=== PATIENT | female | born 1995 | race American Indian/Alaskan Native ===

== ENCOUNTER 2017-02-12 17:15 | Emergency (ER) | payer SELFPAY ==
[2017-02-12] MEDS ORDERED: NACL 0.9% 1000 ML 1,000 ML IV ONE (23:42)
[2017-02-12] MEDS ORDERED: ZOFRAN IV ONE (23:42)
--- NOTE | 2017-02-12 23:43 | Emergency Department Report ---
ED Abdominal Pain HPI - General Chief Complaint: Back Pain/Injury Stated Complaint: SIDE/BACK PAIN Time Seen by Provider: 02/12/17 23:29 Source: patient Mode of arrival: Ambulatory Limitations: No Limitations - History of Present Illness Initial Comments: Patient comes into the ER today with complaints of abdominal pain, bilateral side pain, vomiting for the past week. Patient denies any diarrhea, vaginal discharge, dysuria, chest pain, cough, fever. Patient states that she has been vomiting without any noticeable pattern but does state that she drank some alcohol in a norbert the other day and was unable to finish her drink before she had to go throw it up. MD Complaint: abdominal pain Severity scale (0 -10): 7 - Related Data Previous Rx's Medication Instructions Recorded Last Taken Type HYDROcodone/APAP 5-325 [[place] 1 each PO Q6HR PRN #15 tablet 10/15/13 Unknown Rx 5/325 mg] Acetaminophen/Codeine 1 tab PO Q6H PRN #30 tab 07/21/14 Unknown Rx [Acetaminophen-Codeine #3 TAB] Doxycycline [Vibramycin CAP] 100 mg PO BID #30 capsule 07/21/14 Unknown Rx Fluconazole [Diflucan 200] 200 mg PO QDAY #1 tablet 07/21/14 Unknown Rx Ibuprofen [Motrin] 600 mg PO Q8H PRN #50 tablet 07/21/14 Unknown Rx Ondansetron [Zofran Odt] 4 mg PO Q8HR PRN #20 tab.rapdis 02/13/17 Unknown Rx traMADol [Ultram 50 MG tab] 50 mg PO Q4HR PRN #20 tablet 02/13/17 Unknown Rx Allergies Allergy/AdvReac Type Severity Reaction Status Date / Time shellfish derived Allergy Hives Verified 07/21/14 13:31 ED Review of Systems ROS: Stated complaint: SIDE/BACK PAIN Other details as noted in HPI Constitutional: denies: chills, fever Eyes: denies: eye pain, eye discharge, vision change ENT: denies: ear pain, throat pain Respiratory: denies: cough, shortness of breath, wheezing Cardiovascular: denies: chest pain, palpitations Endocrine: no symptoms reported Gastrointestinal: abdominal pain, nausea, vomiting. denies: diarrhea, constipation Genitourinary: frequency. denies: urgency, dysuria, hematuria, discharge Musculoskeletal: denies: back pain, joint swelling, arthralgia Skin: denies: rash, lesions Neurological: denies: headache, weakness, paresthesias Psychiatric: denies: anxiety, depression Hematological/Lymphatic: denies: easy bleeding, easy bruising ED Past Medical Hx - Past Medical History Previous Medical History?: No - Surgical History Past Surgical History?: Yes Additional Surgical History: 05/20/2014 - Social History Smoking Status: Never Smoker Substance Use Type: None - Medications Home Medications: Home Medications Medication Instructions Recorded Confirmed Last Taken Type HYDROcodone/APAP 5-325 [[place] 1 each PO Q6HR PRN #15 tablet 10/15/13 Unknown Rx 5/325 mg] Acetaminophen/Codeine 1 tab PO Q6H PRN #30 tab 07/21/14 Unknown Rx [Acetaminophen-Codeine #3 TAB] Doxycycline [Vibramycin CAP] 100 mg PO BID #30 capsule 07/21/14 Unknown Rx Fluconazole [Diflucan 200] 200 mg PO QDAY #1 tablet 07/21/14 Unknown Rx Ibuprofen [Motrin] 600 mg PO Q8H PRN #50 tablet 07/21/14 Unknown Rx Ondansetron [Zofran Odt] 4 mg PO Q8HR PRN #20 tab.rapdis 02/13/17 Unknown Rx traMADol [Ultram 50 MG tab] 50 mg PO Q4HR PRN #20 tablet 02/13/17 Unknown Rx ED Physical Exam - General Limitations: No Limitations General appearance: alert, in no apparent distress - Head Head exam: Present: atraumatic, normocephalic - Eye Eye exam: Present: normal appearance - ENT ENT exam: Present: normal exam, normal orophraynx, mucous membranes moist, TM's normal bilaterally, normal external ear exam - Neck Neck exam: Present: normal inspection, full ROM. Absent: tenderness, lymphadenopathy - Respiratory Respiratory exam: Present: normal lung sounds bilaterally. Absent: respiratory distress, chest wall tenderness, decreased breath sounds - Cardiovascular Cardiovascular Exam: Present: regular rate, normal rhythm, normal heart sounds. Absent: systolic murmur, diastolic murmur, rubs, gallop - GI/Abdominal GI/Abdominal exam: Present: soft, tenderness (epigastric), guarding, normal bowel sounds. Absent: distended, rebound, rigid, hyperactive bowel sounds, hypoactive bowel sounds, organomegaly, mass - Extremities Exam Extremities exam: Present: normal inspection - Back Exam Back exam: Present: normal inspection, full ROM. Absent: tenderness - Neurological Exam Neurological exam: Present: alert, oriented X3, CN II-XII intact, reflexes normal. Absent: motor sensory deficit - Psychiatric Psychiatric exam: Present: normal affect, normal mood - Skin Skin exam: Present: warm, dry, intact, normal color. Absent: rash ED Course Vital Signs 02/12/17 02/12/17 17:49 23:04 Temperature 98.6 F 98.3 F Pulse Rate 83 71 Respiratory 16 16 Rate Blood Pressure 127/93 Blood Pressure 120/88 [Right] O2 Sat by Pulse 100 99 Oximetry ED Medical Decision Making - Lab Data Result diagrams: 02/13/17 00:01 02/13/17 00:01 Lab Results 02/13/17 02/13/17 02/13/17 Range/Units 00:01 00:01 00:01 WBC 7.8 (4.5-11.0) K/mm3 RBC 4.31 (3.65-5.03) M/mm3 Hgb 12.6 (10.1-14.3) gm/dl Hct 38.0 (30.3-42.9) % MCV 88 (79-97) fl MCH 29 (28-32) pg MCHC 33 (30-34) % RDW 13.6 (13.2-15.2) % Plt Count 227 (140-440) K/mm3 Lymph % (Auto) 45.6 H (13.4-35.0) % [place] % (Auto) 8.7 H (0.0-7.3) % Eos % (Auto) 2.5 (0.0-4.3) % Baso % (Auto) 0.1 (0.0-1.8) % Lymph # 3.6 (1.2-5.4) K/mm3 [place] # 0.7 (0.0-0.8) K/mm3 Eos # 0.2 (0.0-0.4) K/mm3 Baso # 0.0 (0.0-0.1) K/mm3 Seg Neutrophils % 43.1 (40.0-70.0) % Seg Neutrophils # 3.4 (1.8-7.7) K/mm3 Sodium 136 L (137-145) mmol/L Potassium 3.8 (3.6-5.0) mmol/L Chloride 97.8 L (98-107) mmol/L Carbon Dioxide 27 (22-30) mmol/L Anion Gap 15 mmol/L BUN 10 (7-17) mg/dL Creatinine 0.5 L (0.7-1.2) mg/dL Estimated GFR > 60 ml/min BUN/Creatinine Ratio 20.00 % Glucose 84 (65-100) mg/dL Calcium 9.2 (8.4-10.2) mg/dL Total Bilirubin < 0.20 (0.1-1.2) mg/dL AST 20 (5-40) units/L ALT 43 (7-56) units/L Alkaline Phosphatase 76 (35-129) units/L Total Protein 7.3 (6.3-8.2) g/dL Albumin 4.1 (3.9-5) g/dL Albumin/Globulin Ratio 1.3 % Lipase 26 (13-60) units/L HCG, Qual Negative (Negative) - Radiology Data Radiology results: report reviewed CT of the abdomen and pelvis with IV contrast shows no acute abnormality. Gallbladder and biliary system interpreted as normal. The appendix is normal. No bowel obstructions no intestinal or urinary tract obstruction. - Medical Decision Making Patient is nontoxic and hemodynamically stable. Patient does states she is feeling better after receiving IV fluids and nausea medicine. No obvious etiology to her symptoms found on testing in the ER today. I will refer patient to gastroenterology for further evaluation and treat her symptoms at this time. Patient is in agreement with treatment plan the patient is stable for discharge. Critical care attestation.: If time is entered above; I have spent that time in minutes in the direct care of this critically ill patient, excluding procedure time. ED Disposition Clinical Impression: Epigastric abdominal pain, Vomiting Disposition: DC-01 TO HOME OR SELFCARE Is pt being admited?: No Does the pt Need Aspirin: No Condition: Good Instructions: Abdominal Pain (ED), Acute Nausea and Vomiting (ED) Prescriptions: Ondansetron [Zofran Odt] 4 mg PO Q8HR PRN #20 tab.rapdis PRN Reason: Nausea traMADol [Ultram 50 MG tab] 50 mg PO Q4HR PRN #20 tablet PRN Reason: Pain Referrals: PRIMARY CARE, [Primary Care Provider] - 3-5 Days [facility] [Provider Group] - 3-5 Days Time of Disposition: 02:31
[2017-02-13 00:22] LABS: Basophils % (Auto) 0.1 % (0.0-1.8); Eosinophils % (Auto) 2.5 % (0.0-4.3); Hemoglobin 12.6 gm/dl (10.1-14.3); Mean Corpuscular HGB Conc 33 % (30-34); Mean Corpuscular Hemoglobin 29 pg (28-32); Mean Corpuscular Volume 88 fl (79-97); Platelet Count 227 K/mm3 (140-440); Red Blood Count 4.31 M/mm3 (3.65-5.03); Red Cell Distribution Width 13.6 % (13.2-15.2); White Blood Count 7.8 K/mm3 (4.5-11.0)
[2017-02-13 00:38] LABS: Alanine Aminotransferase 43 units/L (7-56); Albumin 4.1 g/dL (3.9-5); Albumin/Globulin Ratio 1.3 %; Alkaline Phosphatase 76 units/L (35-129); Anion Gap 15 mmol/L; Bilirubin,Total < 0.20 mg/dL (0.1-1.2); Blood Urea Nitrogen 10 mg/dL (7-17); Calcium 9.2 mg/dL (8.4-10.2); Carbon Dioxide 27 mmol/L (22-30); Chloride 97.8 mmol/L (98-107); Glucose 84 mg/dL (65-100); Lipase 26 units/L (13-60); Potassium 3.8 mmol/L (3.6-5.0); Sodium 136 mmol/L (137-145); Total Protein 7.3 g/dL (6.3-8.2)
[2017-02-13] MEDS ORDERED: NACL ONE (00:40)
--- NOTE | 2017-02-13 02:16 | Cat Scan Report ---
FINAL REPORT PROCEDURE: CT ABDOMEN PELVIS W CON TECHNIQUE: Computerized axial tomography of the abdomen and pelvis was performed after the IV injection of iodinated nonionic contrast. HISTORY: epigastric abdominal pain COMPARISON: No prior studies are available for comparison. FINDINGS: Visualized lower thorax: No significant abnormality. Liver: Normal size and attenuation. Spleen: Normal size and attenuation. Gallbladder and biliary system: Normal. Pancreas: Normal. Adrenals: Normal. Kidneys: Normal. GI tract: The stomach is normal. The small bowel has a normal caliber. No obstruction, ileus or enteritis. The cecum, appendix and colon are normal.. Lymph nodes and mesentery: Normal. Vasculature: Normal. Bladder: Normal. Reproductive organs: No pelvic masses.. Peritoneum: No free fluid. Musculoskeletal structures: No significant abnormality. Other: None. IMPRESSION: No evidence of intestinal or urinary tract obstruction. No ileus or enteritis. The appendix is normal.
[2017-02-13 02:58] VITALS: BP 121/78
== END 2017-02-13 02:34 | disposition home or self-care (01) ==
LOC: ED 17:15
DX: R10.13 Epigastric pain (principal); R11.10 Vomiting, unspecified
CPT/HCPCS: 36415; 74177; 80053; 83690; 84703; 85025; 96374; 96375; 99284; J2405; J7030; Q9967

== ENCOUNTER 2017-06-26 21:13 | Emergency (ER) | payer MEDICAID ==
[2017-06-26 21:23] VITALS: BP 119/76
[2017-06-26 21:49] LABS: Basophils % (Auto) 0.5 % (0.0-1.8); Eosinophils % (Auto) 1.4 % (0.0-4.3); Hematocrit 37.1 % (30.3-42.9); Hemoglobin 12.4 gm/dl (10.1-14.3); Mean Corpuscular HGB Conc 33 % (30-34); Mean Corpuscular Hemoglobin 29 pg (28-32); Mean Corpuscular Volume 88 fl (79-97); Platelet Count 233 K/mm3 (140-440); Red Blood Count 4.22 M/mm3 (3.65-5.03); Red Cell Distribution Width 13.4 % (13.2-15.2); White Blood Count 9.1 K/mm3 (4.5-11.0)
[2017-06-26 21:53] LABS: Bacteria,Urine 1+ /HPF (Negative); Bilirubin,Urine NEG (Negative); Blood,Urine SM (Negative); Ketones,Urine NEG (Negative); Leukocyte Esterase,Urine MOD (Negative); Nitrite,Urine NEG (Negative); Protein,Urine <15 mg/dL mg/dL (Negative)
[2017-06-26 22:05] LABS: Alanine Aminotransferase 23 units/L (7-56); Albumin 4.1 g/dL (3.9-5); Albumin/Globulin Ratio 1.5 %; Alkaline Phosphatase 72 units/L (35-129); Anion Gap 15 mmol/L; BUN/Creatinine Ratio 24; Blood Urea Nitrogen 12 mg/dL (7-17); Carbon Dioxide 29 mmol/L (22-30); Chloride 98.7 mmol/L (98-107); Glucose 87 mg/dL (65-100); Lipase 27 units/L (13-60); Potassium 3.8 mmol/L (3.6-5.0); Sodium 139 mmol/L (137-145); Total Protein 6.9 g/dL (6.3-8.2)
== END 2017-06-27 00:25 | disposition left against medical advice (07) ==
LOC: ED 21:13
DX: R10.9 Unspecified abdominal pain (principal); Z53.21 Procedure and treatment not carried out due to patient leaving prior to being seen by health care provider
CPT/HCPCS: 36415; 80053; 81001; 83690; 84703; 85025

== ENCOUNTER 2018-01-28 12:42 | Inpatient (IN) | payer MEDICAID ==
[2018-01-28] MEDS ORDERED: LACTATED RINGERS 500 ML IV ONE (13:04)
--- NOTE | 2018-01-28 14:31 | Ultrasound Report ---
LIMITED OB ULTRASOUND: PROM Gestation: [place] Position: Breech Amniotic Fluid: decreased Heart Rate: 156 BPM Estimated age of 22 weeks 5 days.
[2018-01-28 14:59] LABS: Basophils % (Auto) 0.3 % (0.0-1.8); Eosinophils # (Auto) 0.1 K/mm3 (0.0-0.4); Eosinophils % (Auto) 1.2 % (0.0-4.3); Hematocrit 35.3 % (30.3-42.9); Hemoglobin 11.7 gm/dl (10.1-14.3); Lymphocytes # (Auto) 1.7 K/mm3 (1.2-5.4); Lymphocytes % (Auto) 24.1 % (13.4-35.0); Mean Corpuscular HGB Conc 33 % (30-34); Mean Corpuscular Hemoglobin 29 pg (28-32); Mean Corpuscular Volume 88 fl (79-97); Monocytes # (Auto) 0.7 K/mm3 (0.0-0.8); Monocytes % (Auto) 9.7 % (0.0-7.3); Platelet Count 203 K/mm3 (140-440); Red Blood Count 4.02 M/mm3 (3.65-5.03); Red Cell Distribution Width 14.5 % (13.2-15.2)
[2018-01-28] MEDS ORDERED: COLACE PO PRN (16:27)
[2018-01-28] MEDS ORDERED: TYLENOL PO PRN (16:27)
[2018-01-28] MEDS ORDERED: MAGNESIUM SULFATE 4GM/100ML 4 GM/100 ML BAG IV ONE (16:45)
[2018-01-28] MEDS ORDERED: LACTATED RINGERS 1,000 ML IV SCH (17:00)
--- NOTE | 2018-01-28 17:27 | History and Physical Report ---
History of Present Illness Date of examination: 01/28/18 Date of admission: 01/28/18 15:27 Chief complaint: srom clear History of present illness: This is a 22 yo at 22+5 weeks admitted to labor and delviery after dx with gross rupture with TAMARA 0. Patient states that she has had an uneventful . Past History Past Surgical History: no surgical history [employer] History: trichomonas Family/Genetic History: none Social history: no significant social history, single. denies: smoking, alcohol abuse, prescription drug abuse - Obstetrical History Expected Date of Delivery: 05/29/18 Actual Gestation: 22 Week(s) 5 Day(s) : 2 Para: 1 Hx # Term Pregnancies: 0 Number of Pregnancies: 0 Spontaneous Abortions: 0 Induced : 0 Number of Living Children: 1 Medications and Allergies Allergies Allergy/AdvReac Type Severity Reaction Status Date / Time shellfish derived Allergy Hives Verified 07/21/14 13:31 Home Medications Medication Instructions Recorded Confirmed Last Taken Type No Known Home Medications [No 01/28/18 01/28/18 Unknown History Reported Home Medications] Active Meds: Active Medications Acetaminophen (Tylenol) 650 mg PO Q4H PRN PRN Reason: Pain MILD(1-3)/Fever >100.5/CHILDERS Docusate Sodium (Colace) 100 mg PO Q12H PRN PRN Reason: Constipation Ampicillin Sodium (Polycillin/Ns 2 Gm/100 Ml) 2 gm in 100 mls @ 100 mls/hr IV Q6HR OMAR; Protocol Stop: 01/30/18 12:59 Lactated Ringer's (Lactated Ringers) 1,000 mls @ 125 mls/hr IV DIRECT OMAR Lactated Ringer's (Lactated Ringers) 1,000 mls @ 125 mls/hr IV DIRECT OMAR Magnesium Sulfate (Magnesium Sulfate 40gm/1000ml) 40 gm in 1,000 mls @ 50 mls/ hr IV DIRECT OMAR Multivitamins/Iron/Calcium ( Vitamin) 1 each PO QDAY OMAR Review of Systems All systems: negative Genitourinary: leakage of fluid - Vital Signs Vital signs: Vital Signs Temp Pulse Resp BP Pulse Ox 97.4 F L 83 16 131/81 99 01/28/18 16:00 01/28/18 16:00 01/28/18 16:00 01/28/18 16:00 01/28/18 16:00 Temp Pulse Resp BP Pulse Ox 97.4 F L 92 H 16 131/81 99 01/28/18 16:00 01/28/18 16:16 01/28/18 16:00 01/28/18 16:00 01/28/18 16:16 - Physical Exam Breasts: Positive: normal Cardiovascular: Regular rate, Normal S1 Lungs: Positive: Clear to auscultation, Normal air movement Abdomen: Positive: normal appearance, soft, normal bowel sounds. Negative: distention, tenderness, guarding Genitourinary (Female): Positive: normal external genitalia, normal perenium Vulva: both: normal Uterus: Positive: normal size, normal contour Adnexa: both: normal Anus/Rectum: Positive: normal perianal skin Extremities: Positive: normal Deep Tendon Reflex Grade: Normal +2 - Obstetrical FHR: auscultation normal Results Result Diagrams: 01/28/18 14:37 Abnormal lab results 01/28/18 Range/Units 14:37 [place] % (Auto) 9.7 H (0.0-7.3) % All other labs normal. Ultrasound: report reviewed Assessment and Plan A/P IUP 22+5 weeks PPROM azithro/amp latency abx Mag for neuroprotection IVF NICU consult Discussed poor prognosis
[2018-01-28] MEDS: LACTATED RINGERS 1,000 ML IV SCH (18:11)
[2018-01-28] MEDS: POLYCILLIN/NS 2 GM/100 ML 2 GM/100 ML BAG IV SCH (18:13)
[2018-01-28] MEDS: MAGNESIUM SULFATE 40GM/1000ML 40 GM/1,000 ML BAG IV SCH (18:24)
[2018-01-28] MEDS: ZITHROMAX 500 MG in NACL 0.9% 250ML 250 ML IV SCH (19:54)
[2018-01-28 20:09] LABS: Bilirubin,Urine NEG (Negative); Blood,Urine NEG (Negative); Color,Urine Yellow (Yellow); Mucus,Urine FEW /HPF; Protein,Urine <15 mg/dL mg/dL (Negative); Urobilinogen,Urine < 2.0 mg/dL (<2.0); WBC,Urine < 1.0 /HPF (0.0-6.0)
[2018-01-28 20:34] LABS: Basophils % (Auto) 0.3 % (0.0-1.8); Eosinophils # (Auto) 0.1 K/mm3 (0.0-0.4); Eosinophils % (Auto) 0.9 % (0.0-4.3); Hematocrit 34.8 % (30.3-42.9); Hemoglobin 11.5 gm/dl (10.1-14.3); Lymphocytes # (Auto) 1.5 K/mm3 (1.2-5.4); Lymphocytes % (Auto) 16.1 % (13.4-35.0); Mean Corpuscular HGB Conc 33 % (30-34); Mean Corpuscular Hemoglobin 29 pg (28-32); Mean Corpuscular Volume 88 fl (79-97); Monocytes # (Auto) 0.8 K/mm3 (0.0-0.8); Monocytes % (Auto) 8.4 % (0.0-7.3); Platelet Count 202 K/mm3 (140-440); Red Blood Count 3.96 M/mm3 (3.65-5.03); Red Cell Distribution Width 14.5 % (13.2-15.2)
--- NOTE | 2018-01-28 21:50 | Consultation ---
History of Present Illness Consult date: 01/28/18 Requesting physician: ALEXYS WASHINGTON Reason for consult: other (PPROM @ 22 completed weeks) History of present illness: [facility] consulted to discuss potential outcome related to extremely at 22 completed weeks. Met with mother at bedside. Discussd survival at this gestation based on recent NICHD data. Pointed out that survival at this gestation is poor (~5%), but improves to ~ 15-20% at 23 weeks for those newborns actively resuscitated. Overall, survival for infants born 22- 24 weeks is ~ 30%. Aside from survival, neurodevelopmental impairment (Hearing loss, blindness, cerebral palsy, and intellectual impairment) occurs in close to 50% of survivors born at 22-24 weeks. Emphasized to mother that every individual is different, and although no single source of information can precisely predict a baby's chances of survival or disability, the data is best presented and discussed in terms of management. Discussed with Dr. Washington and based on her understanding at this point that mother currently desires all interventions, concur with management with Magnesium sulfate,and antibiotics (Ampicillin, Azithromycin). Since mother is approaching 23 wks (22 5/7), would also start steroids. Will discuss with Maternal- Medicine when consults and continue to discuss with Dr. Washington. Assured mother of availability to discuss further issues which may arise. [place] Documentation - information: Height 5 ft 4 in Medications and Allergies Allergies Allergy/AdvReac Type Severity Reaction Status Date / Time shellfish derived Allergy Hives Verified 07/21/14 13:31 Home Medications Medication Instructions Recorded Confirmed Last Taken Type No Known Home Medications [No 01/28/18 01/28/18 Unknown History Reported Home Medications] Active Meds: Active Medications Acetaminophen (Tylenol) 650 mg PO Q4H PRN PRN Reason: Pain MILD(1-3)/Fever >100.5/CHILDERS Betamethasone Acet/Betameth SodPhos ([place] Soluspan) 12 mg IM Q24HR OMAR Stop: 01/30/18 10:01 Docusate Sodium (Colace) 100 mg PO Q12H PRN PRN Reason: Constipation Ampicillin Sodium (Polycillin/Ns 2 Gm/100 Ml) 2 gm in 100 mls @ 100 mls/hr IV Q6HR OMAR; Protocol Stop: 01/30/18 12:59 Last Admin: 01/28/18 18:13 Dose: 100 mls/hr Lactated Ringer's (Lactated Ringers) 1,000 mls @ 125 mls/hr IV DIRECT OMAR Last Admin: 01/28/18 18:11 Dose: 75 mls/hr Lactated Ringer's (Lactated Ringers) 1,000 mls @ 125 mls/hr IV DIRECT OMAR Magnesium Sulfate (Magnesium Sulfate 40gm/1000ml) 40 gm in 1,000 mls @ 50 mls/ hr IV DIRECT OMAR Last Admin: 01/28/18 18:24 Dose: 2 gm/hr, 50 mls/hr Azithromycin 500 mg/ Sodium (Chloride) 250 mls @ 250 mls/hr IV Q24HR OMAR Last Admin: 01/28/18 19:54 Dose: 250 mls/hr Multivitamins/Iron/Calcium ( Vitamin) 1 each PO QDAY OMAR Exam Vital Signs Temp Pulse Resp BP Pulse Ox 97.4 F L 83 16 131/81 99 01/28/18 16:00 01/28/18 16:00 01/28/18 16:00 01/28/18 16:00 01/28/18 16:00 Temp Pulse Resp BP Pulse Ox 97.6 F 87 18 110/62 99 01/28/18 20:05 01/28/18 20:07 01/28/18 20:05 01/28/18 20:07 01/28/18 16:16 Results - Laboratory Findings 01/28/18 20:11 Abnormal lab results 01/28/18 01/28/18 01/28/18 Range/Units 14:37 20:11 20:11 [place] % (Auto) 9.7 H 8.4 H (0.0-7.3) % Seg Neutrophils % 74.3 H (40.0-70.0) % Magnesium 3.70 H (1.7-2.3) mg/dL
[2018-01-28] MEDS: AMBIEN PO PRN (22:31)
[2018-01-29] MEDS: POLYCILLIN/NS 2 GM/100 ML 2 GM/100 ML BAG IV SCH ×4 (00:08→18:20)
--- NOTE | 2018-01-29 08:38 | Progress Note ---
Assessment and Plan A: IUP at 22w6d- Breech presentation PPROM on latency antibiotics (Ampicillin and azithromycin) Mag for neuroprotection x 24 hrs IVF NICU consult much appreciated P: Continue current management Begin betamethasone series today Anticipate MFM consult today Closely monitor maternal and status Subjective - Subjective Date of service: 01/29/18 Principal diagnosis: PPROM at 22w6d, Anhydramnios Interval history: Pt sad but has no physical complaints. Patient reports: loss of fluid, other (+ brown vaginal discharge ), no new complaints Objective - Vital Signs Vital Signs: Vital Signs - 12hr 01/28/18 01/28/18 01/29/18 22:16 22:21 00:07 Temperature Pulse Rate 91 H 89 104 H Respiratory 18 Rate Blood Pressure 105/56 105/56 Blood Pressure 105/56 [Right] O2 Sat by Pulse 100 Oximetry 01/29/18 01/29/18 01/29/18 00:09 00:10 00:12 Temperature Pulse Rate 104 H 101 H 97 H Respiratory Rate Blood Pressure 99/56 101/56 Blood Pressure [Right] O2 Sat by Pulse 100 93 Oximetry 01/29/18 01/29/18 01/29/18 00:14 00:27 02:28 Temperature Pulse Rate 95 H 89 114 H Respiratory 16 Rate Blood Pressure Blood Pressure 105/56 [Right] O2 Sat by Pulse 100 98 Oximetry 01/29/18 01/29/18 01/29/18 02:30 02:33 02:38 Temperature Pulse Rate 113 H 115 H 108 H Respiratory Rate Blood Pressure 107/57 Blood Pressure 107/57 [Right] O2 Sat by Pulse 94 96 97 Oximetry 01/29/18 01/29/18 01/29/18 02:43 02:44 02:48 Temperature Pulse Rate 107 H 110 H 100 H Respiratory Rate Blood Pressure Blood Pressure [Right] O2 Sat by Pulse 97 87 96 Oximetry 01/29/18 01/29/18 01/29/18 02:53 02:58 03:01 Temperature Pulse Rate 103 H 100 H 104 H Respiratory Rate Blood Pressure Blood Pressure [Right] O2 Sat by Pulse 96 96 94 Oximetry 01/29/18 01/29/18 01/29/18 03:03 03:08 03:13 Temperature Pulse Rate 103 H 101 H 107 H Respiratory Rate Blood Pressure Blood Pressure [Right] O2 Sat by Pulse 96 94 96 Oximetry 01/29/18 01/29/18 01/29/18 03:18 03:23 03:28 Temperature Pulse Rate 104 H 108 H 106 H Respiratory Rate Blood Pressure Blood Pressure [Right] O2 Sat by Pulse 95 96 95 Oximetry 01/29/18 01/29/18 01/29/18 03:33 03:37 03:38 Temperature Pulse Rate 106 H 108 H 115 H Respiratory Rate Blood Pressure Blood Pressure [Right] O2 Sat by Pulse 96 94 95 Oximetry 01/29/18 01/29/18 01/29/18 04:05 04:21 05:13 Temperature 97.6 F Pulse Rate 114 H 101 H 102 H Respiratory 18 Rate Blood Pressure 103/52 Blood Pressure 103/52 [Right] O2 Sat by Pulse 98 98 Oximetry 01/29/18 01/29/18 01/29/18 05:18 05:23 05:28 Temperature Pulse Rate 104 H 101 H 104 H Respiratory Rate Blood Pressure Blood Pressure [Right] O2 Sat by Pulse 96 98 97 Oximetry 01/29/18 01/29/18 01/29/18 05:34 05:39 05:44 Temperature Pulse Rate 101 H 99 H 103 H Respiratory Rate Blood Pressure Blood Pressure [Right] O2 Sat by Pulse 97 96 97 Oximetry 01/29/18 01/29/18 01/29/18 05:49 05:54 05:55 Temperature Pulse Rate 100 H 107 H 117 H Respiratory Rate Blood Pressure Blood Pressure [Right] O2 Sat by Pulse 97 99 80 L Oximetry 01/29/18 01/29/18 01/29/18 05:59 06:04 06:09 Temperature Pulse Rate 101 H 99 H 98 H Respiratory Rate Blood Pressure Blood Pressure [Right] O2 Sat by Pulse 99 98 99 Oximetry 01/29/18 01/29/18 01/29/18 06:14 06:19 06:55 Temperature 97.6 F Pulse Rate 98 H 102 H 99 H Respiratory Rate Blood Pressure Blood Pressure 94/51 [Right] O2 Sat by Pulse 99 98 Oximetry 01/29/18 01/29/18 01/29/18 06:57 06:58 07:00 Temperature Pulse Rate 97 H 96 H 97 H Respiratory Rate Blood Pressure 90/49 94/51 Blood Pressure [Right] O2 Sat by Pulse 89 99 Oximetry - Exam Breasts: deferred Cardiovascular: Regular rate Lungs: Clear to auscultation Abdomen: Present: soft (gravid ) Uterus: Present: normal (gravid ) FHR: auscultation normal Uterine Contraction Monitor Mode: External Uterine Contraction Pattern: Absent Uterine Tone Measurement Phase: Resting Extremities: normal - Labs Labs: Abnormal Labs 01/28/18 01/28/18 01/28/18 14:37 20:11 20:11 [place] % (Auto) 9.7 H 8.4 H Seg Neutrophils % 74.3 H Magnesium 3.70 H 01/29/18 01/29/18 00:29 06:46 [place] % (Auto) Seg Neutrophils % Magnesium 4.30 H 4.60 H Laboratory Results - last 24 hr 01/28/18 01/28/18 01/28/18 14:37 14:37 19:56 WBC 7.0 RBC 4.02 Hgb 11.7 Hct 35.3 MCV 88 MCH 29 MCHC 33 RDW 14.5 Plt Count 203 Lymph % (Auto) 24.1 [place] % (Auto) 9.7 H Eos % (Auto) 1.2 Baso % (Auto) 0.3 Lymph # 1.7 [place] # 0.7 Eos # 0.1 Baso # 0.0 Seg Neutrophils % 64.7 Seg Neutrophils # 4.5 Magnesium Urine Color Yellow Urine Turbidity Clear Urine pH 7.0 Ur Specific [place] 1.009 Urine Protein <15 mg/dl Urine Glucose (UA) Neg Urine Ketones Neg Urine Blood Neg Urine Nitrite Neg Urine Bilirubin Neg Urine Urobilinogen < 2.0 Ur Leukocyte Esterase Neg Urine WBC (Auto) < 1.0 Urine RBC (Auto) 1.0 U Epithel Cells (Auto) < 1.0 Urine Mucus Few Blood Type O POSITIVE Antibody Screen Negative 01/28/18 01/28/18 01/29/18 20:11 20:11 00:29 WBC 9.2 RBC 3.96 Hgb 11.5 Hct 34.8 MCV 88 MCH 29 MCHC 33 RDW 14.5 Plt Count 202 Lymph % (Auto) 16.1 [place] % (Auto) 8.4 H Eos % (Auto) 0.9 Baso % (Auto) 0.3 Lymph # 1.5 [place] # 0.8 Eos # 0.1 Baso # 0.0 Seg Neutrophils % 74.3 H Seg Neutrophils # 6.8 Magnesium 3.70 H 4.30 H Urine Color Urine Turbidity Urine pH Ur Specific [place] Urine Protein Urine Glucose (UA) Urine Ketones Urine Blood Urine Nitrite Urine Bilirubin Urine Urobilinogen Ur Leukocyte Esterase Urine WBC (Auto) Urine RBC (Auto) U Epithel Cells (Auto) Urine Mucus Blood Type Antibody Screen 01/29/18 06:46 WBC RBC Hgb Hct MCV MCH MCHC RDW Plt Count Lymph % (Auto) [place] % (Auto) Eos % (Auto) Baso % (Auto) Lymph # [place] # Eos # Baso # Seg Neutrophils % Seg Neutrophils # Magnesium 4.60 H Urine Color Urine Turbidity Urine pH Ur Specific [place] Urine Protein Urine Glucose (UA) Urine Ketones Urine Blood Urine Nitrite Urine Bilirubin Urine Urobilinogen Ur Leukocyte Esterase Urine WBC (Auto) Urine RBC (Auto) U Epithel Cells (Auto) Urine Mucus Blood Type Antibody Screen
[2018-01-29] MEDS: PRENATAL VITAMIN PO SCH (09:27)
[2018-01-29] MEDS: CELESTONE SOLUSPAN IM SCH (09:28)
[2018-01-29] MEDS: LACTATED RINGERS 1,000 ML IV SCH (10:54)
[2018-01-29] MEDS: MAGNESIUM SULFATE 40GM/1000ML 40 GM/1,000 ML BAG IV SCH (13:32)
--- NOTE | 2018-01-29 16:35 | Consultation ---
History of Present Illness Consult date: 01/29/18 Requesting physician: ALEXYS SOOD Reason for consult: PROM (22.6 weeks gestation) History of present illness: She is a 22yo, pleasant female, , admitted to [facility] on 01/28/18 at 22.5 weeks gestations, s/p PPROM. She reports engaging in sexual intercourse when PPROM occurred. An ultrasound was performed on admission showing anhydramnios. She denies complications this . She denies current leaking of fluid, bleeding, and contractions. Past History Past Medical History: no pertinent history Past Surgical History: no surgical history [employer] History: trichomonas Family/Genetic History: none - Obstetrical History : 3 Para: 1 Hx # Term Pregnancies: 1 Number of Pregnancies: 0 Spontaneous Abortions: 0 Induced : 1 Number of Living Children: 1 (2008, male, term, ) Medications and Allergies Allergies Allergy/AdvReac Type Severity Reaction Status Date / Time shellfish derived Allergy Hives Verified 07/21/14 13:31 Home Medications Medication Instructions Recorded Confirmed Last Taken Type No Known Home Medications [No 01/28/18 01/28/18 Unknown History Reported Home Medications] Active Meds: Active Medications Acetaminophen (Tylenol) 650 mg PO Q4H PRN PRN Reason: Pain MILD(1-3)/Fever >100.5/CHILDERS Last Admin: 01/29/18 09:26 Dose: 650 mg Betamethasone Acet/Betameth SodPhos (Celestone Soluspan) 12 mg IM Q24HR OMAR Stop: 01/30/18 10:01 Last Admin: 01/29/18 09:28 Dose: 12 mg Docusate Sodium (Colace) 100 mg PO Q12H PRN PRN Reason: Constipation Ampicillin Sodium (Polycillin/Ns 2 Gm/100 Ml) 2 gm in 100 mls @ 100 mls/hr IV Q6HR OMAR; Protocol Stop: 01/30/18 12:59 Last Admin: 01/29/18 12:24 Dose: 100 mls/hr Lactated Ringer's (Lactated Ringers) 1,000 mls @ 125 mls/hr IV DIRECT OMAR Last Admin: 01/29/18 10:54 Dose: 75 mls/hr Magnesium Sulfate (Magnesium Sulfate 40gm/1000ml) 40 gm in 1,000 mls @ 50 mls/ hr IV DIRECT [facility] Last Admin: 01/29/18 13:32 Dose: 2 gm/hr, 50 mls/hr Azithromycin 500 mg/ Sodium (Chloride) 250 mls @ 250 mls/hr IV Q24HR [facility] Last Admin: 01/28/18 19:54 Dose: 250 mls/hr Multivitamins/Iron/Calcium ( Vitamin) 1 each PO QDAY [facility] Last Admin: 01/29/18 09:27 Dose: 1 each Zolpidem Tartrate (Ambien) 10 mg PO QHS PRN PRN Reason: Insomnia Last Admin: 01/28/18 22:31 Dose: 10 mg Review of Systems Constitutional: other (Denies headaches, fevers, chills) Eyes: deferred Ears, nose, mouth and throat: deferred Cardiovascular: other (Denies chest pain, SOB, edema, palpitations) Respiratory: other (Denies SOB, wheezing, coughing) Breasts: deferred Gastrointestinal: other (Denies abdomnial pain, constipation, diarrhea) Genitourinary: other (denies contractions, bleeding, or current leaking of fluid ) Rectal Exam: deferred - Vital Signs Vital signs: Vital Signs Temp Pulse Resp BP Pulse Ox 97.4 F L 83 16 131/81 99 01/28/18 16:00 01/28/18 16:00 01/28/18 16:00 01/28/18 16:00 01/28/18 16:00 Temp Pulse Resp BP Pulse Ox 98.4 F 84 20 109/57 99 01/29/18 12:55 01/29/18 12:38 01/29/18 12:33 01/29/18 12:37 01/29/18 12:38 - Physical Exam Breasts: Positive: deferred Cardiovascular: Regular rate, Normal S1, Normal S2, No murmurs Lungs: Positive: Clear to auscultation Abdomen: Positive: other (gravid) Results Result Diagrams: 01/28/18 20:11 Abnormal lab results 01/28/18 01/28/18 01/29/18 Range/Units 20:11 20:11 00:29 [place] % (Auto) 8.4 H (0.0-7.3) % Seg Neutrophils % 74.3 H (40.0-70.0) % Magnesium 3.70 H 4.30 H (1.7-2.3) mg/dL 01/29/18 01/29/18 Range/Units 06:46 12:56 [place] % (Auto) (0.0-7.3) % Seg Neutrophils % (40.0-70.0) % Magnesium 4.60 H 5.30 H (1.7-2.3) mg/dL All other labs normal. Assessment and Plan A Currently 22.6 weeks Magnesium Sulfate infusion x 24 hours for neuroprotection IV Azithromycin and IV Ampicillin Betamethasone x 1(second dose to be received tomorrow) Continuous monitoring VSS S/P NICU consult discussing prognosis of P I discussed with Ms. Montenegro the poor prognosis of current . She verbalized understanding and stated "everything happens for a reason". I agreee with current management/plan of care Continue Magnesium Sulfate for 24 hours Complete Betamethasone 2nd dose Continue IV antibiotics Monitor for infection Continue monitoring [employer] ornamental ironworker MD (Dr. Gutierrez) to follow up with patient. Please call MD for further questions or concerns. Thank you for your consult. Jacki Begum NP
[2018-01-29] MEDS: AMBIEN PO PRN (22:11)
[2018-01-29] MEDS: ZITHROMAX 500 MG in NACL 0.9% 250ML 250 ML IV SCH (23:42)
[2018-01-30] MEDS: POLYCILLIN/NS 2 GM/100 ML 2 GM/100 ML BAG IV SCH ×3 (01:12→12:01)
[2018-01-30] MEDS: LACTATED RINGERS 1,000 ML IV SCH ×3 (01:15→19:00)
[2018-01-30] MEDS: CELESTONE SOLUSPAN IM SCH (12:00)
[2018-01-30] MEDS: PRENATAL VITAMIN PO SCH (12:05)
--- NOTE | 2018-01-30 13:11 | Progress Note ---
Assessment and Plan HD 2 for this IUP at 23 weeks with pprom. heart has been having occasional decelerations for 2 minutes. I discussed mode of delivery with patient in light of the fact that patient is pprom, severely premature and breech, and advised her that she would need to have a classical section if delivery becomes indicated. Patient was unaware of this. I also advised her that if a classical section was indicated that she would need to have for every subsequent . Patient became very upset with this information and stated that she will continue to think about her options. Continue current care Subjective - Subjective Date of service: 01/30/18 Principal diagnosis: PPROM at 22w6d, Anhydramnios Interval history: Rupture of membranes at 23 weeks. Patient recently received 2nd dose of steroids and is off of magnesium sulfate. Patient reports: loss of fluid, other (+ brown vaginal discharge ), no new complaints Objective - Vital Signs Vital Signs: Vital Signs - 12hr 01/30/18 01/30/18 01/30/18 02:26 03:00 04:26 Temperature 97.1 F L Pulse Rate 78 80 Respiratory Rate Blood Pressure 99/50 96/54 O2 Sat by Pulse Oximetry 01/30/18 01/30/18 01/30/18 05:00 05:31 06:26 Temperature 98.3 F 96.1 F L Pulse Rate 74 Respiratory Rate Blood Pressure 109/59 O2 Sat by Pulse Oximetry 01/30/18 01/30/18 01/30/18 08:00 11:54 11:57 Temperature 97.6 F 97.8 F Pulse Rate 73 Respiratory 16 Rate Blood Pressure 103/55 O2 Sat by Pulse Oximetry 01/30/18 12:18 Temperature Pulse Rate 86 Respiratory Rate Blood Pressure O2 Sat by Pulse 98 Oximetry - Exam Breasts: deferred Cardiovascular: Regular rate, Normal S1, Normal S2 Lungs: Normal air movement Abdomen: Present: normal appearance, soft, normal bowel sounds, other (nontender ) Vulva: both: normal Uterus: Present: normal, firm FHR: auscultation normal Uterine Contraction Pattern: Absent Extremities: normal Deep Tendon Reflex Grade: Normal +2 - Labs Labs: Abnormal Labs 01/28/18 01/28/18 01/28/18 14:37 20:11 20:11 Becker % (Auto) 9.7 H 8.4 H Seg Neutrophils % 74.3 H Magnesium 3.70 H 01/29/18 01/29/18 01/29/18 00:29 06:46 12:56 Becker % (Auto) Seg Neutrophils % Magnesium 4.30 H 4.60 H 5.30 H 01/29/18 18:21 Becker % (Auto) Seg Neutrophils % Magnesium 5.10 H Laboratory Results - last 24 hr 01/29/18 01/29/18 12:56 18:21 Magnesium 5.30 H 5.10 H
[2018-01-30] MEDS ORDERED: BICITRA ONE (13:53)
[2018-01-30] MEDS ORDERED: PITOCin/NS 20 UNIT/1000ML DRIP 20,000 MILLIUNITS/1,000 ML BAG IV ONE (13:53)
[2018-01-30] MEDS ORDERED: REGLAN ONE (13:53)
[2018-01-30] MEDS ORDERED: ANCEF/STERILE WATER 2 GM/20 ML 0 GM/0 ML SYRINGE IV ONE (13:54)
[2018-01-30] MEDS ORDERED: PEPCID IV ONE (13:54)
[2018-01-30] MEDS ORDERED: DIPRIVAN 10 MG/ML IV ONE (13:59)
--- NOTE | 2018-01-30 14:12 | Event Note ---
Date: 01/30/18 Called to see patient secondary to cord prolapse with approximately 8 inches of cord protruding outside of the vagina. Exam reveals legs and feet inside vagina. Patient initially stated that she wanted everything done, but en route to OR for stat classical section, patient decided that she did not want to proceed with surgery if chances of infant survival were slim to none, especially in light of cord prolapse. Will return to room and anticipate vaginal delivery.
[2018-01-30] MEDS ORDERED: SUBLIMAZE IV ONE (15:00)
[2018-01-30] MEDS ORDERED: PITOCin/NS 20 UNIT/1000ML DRIP 20 UNITS/1,000 ML BAG IV SCH (15:00)
[2018-01-30] MEDS ORDERED: PITOCin/NS 30 UNIT/500ML 30,000 MILLIUNITS/500 ML BAG IV ONE (15:33)
[2018-01-30] MEDS ORDERED: SUBLIMAZE ONE (18:06)
--- NOTE | 2018-01-30 18:42 | Procedure Note ---
OB Delivery Note - Delivery Date of Delivery: 01/30/18 Surgeon: SCOTT ALMANZA Estimated blood loss: 100cc - Vaginal Delivery presentation: breech Intrapartum events: labor-<37 weeks, PROM->1hr before delivery Delivery induction: none Delivery monitor: external uterine Route of delivery: breech extraction Delivery placenta: adherent, other Episiotomy: none Delivery laceration: none Anesthesia: none Delivery comments: Nonviable female delivered over intact perineum with double footling breech presentation at 1540. had mild spontaneous respirations but no cry and low heart rate at 56 and after 40 minutes. Placenta not delivered still at 1830. Will await for delivery of placenta. Give pitocin to help with delivery of placenta. - Infant A at 1 minute: 1 at 5 minutes: 1 Infant Gender: Female
[2018-01-30] MEDS ORDERED: ANCEF/STERILE WATER 2 GM/20 ML 2 GM/20 ML SYRINGE IV ONE (19:30)
[2018-01-30] MEDS ORDERED: ANCEF/STERILE WATER 2 GM/20 ML 2 GM/20 ML SYRINGE IV SCH (22:00)
[2018-01-30] MEDS ORDERED: SUBLIMAZE IV PRN (23:30)
[2018-01-31] MEDS ORDERED: BICITRA ONE (01:29)
[2018-01-31] MEDS ORDERED: PEPCID IV ONE ×2 (01:30)
[2018-01-31] MEDS ORDERED: REGLAN IV ONE (01:30)
[2018-01-31] MEDS ORDERED: BICITRA PO ONE (01:30)
[2018-01-31] MEDS ORDERED: REGLAN ONE (01:30)
--- NOTE | 2018-01-31 01:35 | Event Note ---
Date: 01/31/18 Called by nursing staff to report that placenta delivered, however called a second time to state that what was thought to be placenta was only a large clot. Patient has had an increase in bleeding but has yet to pass placenta. Will proceed with D&E for retained placenta. Consents signed and patient prepared for surgery
[2018-01-31] MEDS ORDERED: PITOCin/NS 20 UNIT/1000ML DRIP 20 UNITS/1,000 ML BAG IV SCH ×2 (02:00→04:25)
[2018-01-31] MEDS ORDERED: LACTATED RINGERS 1,000 ML IV SCH (02:00)
[2018-01-31] MEDS ORDERED: SUBLIMAZE ONE (02:18)
[2018-01-31] MEDS ORDERED: XYLOCAINE MPF 2% ONE (02:22)
--- NOTE | 2018-01-31 02:45 | Post Operative Note ---
Pre-op diagnosis: PPROM at 22 weeks, at 23 weeks. Retained placenta Post-op diagnosis: same Findings: Adherent 23 week placenta Procedure: D&E Anesthesia: GETA Surgeon: SCOTT ALMANZA Estimated blood loss: other (300) Pathology: list (placenta fragments) Specimen disposition: to lab Condition: stable Disposition: PACU
--- NOTE | 2018-01-31 02:55 | Anesthesia Consultation ---
Anesthesia Consult and Med Hx Date of service: 01/31/18 - Airway Anesthetic Teeth Evaluation: Good ROM Head & Neck: Adequate Mental/Hyoid Distance: Adequate Mallampati Class: Class II Intubation Access Assessment: Probably Good - Pulmonary Exam CTA: Yes - Cardiac Exam Cardiac Exam: RRR - Pre-Operative Health Status ASA Pre-Surgery Classification: ASA2, Emergency Proposed Anesthetic Plan: General - Pulmonary Hx Asthma: No COPD: No Hx Pneumonia: No - Cardiovascular System Hx Hypertension: No - Central Nervous System Hx Seizures: No Hx Psychiatric Problems: No - Endocrine Hx Renal Disease: No Hx End Stage Renal Disease: No Hx Hypothyroidism: No Hx Hyperthyroidism: No - Hematic Hx Anemia: No Hx Sickle Cell Disease: No - Other Systems Hx Alcohol Use: No Hx Obesity: Yes - Additional Comments Anesthesia Medical History Comments: IUFD with retained placenta
[2018-01-31] MEDS ORDERED: DILAUDID IV PRN (02:56)
--- NOTE | 2018-01-31 02:56 | Anesthesia Day of Surgery ---
Anesthesia Day of Surgery - Day of Surgery Patient Examined: Yes Patient H&P Reviewed: Yes Patient is NPO: Yes (FSP)
--- NOTE | 2018-01-31 02:56 | Post Anesthesia Evaluation ---
- Post Anesthesia Evaluation Patient Participated: Yes Airway Patent: Yes Stable Respiratory Function: Yes Nausea/Vomiting: No Temp > 96.8F: Yes Pain Manageable: Yes Adequeate Hydration: Yes Anesthesia Complications: No Block Receding Appropriately: Not Applicable
[2018-01-31] MEDS ORDERED: QUELICIN ONE (03:00)
[2018-01-31] MEDS ORDERED: BENADRYL PO PRN (04:25)
[2018-01-31] MEDS ORDERED: ZOFRAN IV PRN (04:25)
[2018-01-31] MEDS ORDERED: PHENERGAN PR PRN (04:25)
[2018-01-31] MEDS ORDERED: PHENERGAN PO PRN (04:25)
[2018-01-31] MEDS ORDERED: NORCO 5/325 PO PRN (04:25)
[2018-01-31] MEDS ORDERED: SODIUM CHLORIDE FLUSH SYRINGE 10 ML IV NR (04:25)
[2018-01-31] MEDS ORDERED: MILK OF MAGNESIA PO PRN (04:25)
[2018-01-31] MEDS ORDERED: TUCKS PAD TP PRN (04:25)
[2018-01-31] MEDS ORDERED: DULCOLAX PR PRN (04:25)
[2018-01-31] MEDS ORDERED: LANSINOH TP PRN (04:25)
[2018-01-31] MEDS ORDERED: TYLENOL PO PRN (04:25)
[2018-01-31] MEDS: MOTRIN PO SCH ×4 (05:33→22:50)
[2018-01-31] MEDS ORDERED: PRENATAL VITAMIN PO SCH (10:00)
[2018-01-31] MEDS: COLACE PO SCH ×2 (10:24→22:50)
[2018-01-31 12:31] LABS: Hematocrit 24.7 % (30.3-42.9); Hemoglobin 8.3 gm/dl (10.1-14.3)
[2018-01-31] MEDS ORDERED: LACTATED RINGERS ONE (13:53)
--- NOTE | 2018-01-31 20:58 | Progress Note ---
Assessment and Plan POD 0 s/p D&E. PPD 1 s/p delivery of extremely premature infant secondary to pprom. Patient stable. Will continue to watch another night. Plan for discharge in the morning. Subjective - Subjective Date of service: 01/31/18 Principal diagnosis: PPROM at 22w6d, Anhydramnios Interval history: Patient is POD 0 s/p D&E. She complained of mild dizziness this morning and has been having episodic low blood pressure. Patient reports: appetite normal, voiding normally, dizzy ambulation, flatus : Objective - Vital Signs Latest vital signs: Vital Signs Temp Pulse Resp BP BP Pulse Ox 01/31/18 19:30 98.7 F 71 16 115/66 01/31/18 16:23 98.4 F 98 H 16 105/50 97 01/31/18 14:59 96/44 01/31/18 12:20 95/44 01/31/18 11:28 100 01/31/18 11:27 98.2 F 76 18 91/44 100 01/31/18 05:00 98.9 F 68 18 102/44 01/31/18 03:55 98 F 01/31/18 03:15 65 17 96/54 100 01/31/18 03:10 64 19 96/60 100 01/31/18 03:05 77 19 96/52 100 01/31/18 03:00 79 18 96/49 99 01/31/18 02:55 82 17 99/54 100 01/31/18 02:50 92 H 16 121/67 100 01/31/18 02:45 98 F 115/59 98 01/31/18 01:30 86 102/55 01/31/18 00:30 65 106/62 01/30/18 23:30 83 123/60 01/30/18 22:32 63 98/54 01/30/18 21:28 75 108/55 Intake and Output 01/31/18 01/31/18 01/31/18 06:59 14:59 22:59 Intake Total 1300 125 300 Output Total 1150 Balance 150 125 300 Intake: IV 1300 125 Left Wrist 125 Intake, Free Water 300 Output: Urine 1150 Void 1100 Other: Total, Output Amount 200 Estimated Blood Loss 300 - Exam Lungs: Present: Clear to auscultation, Normal air movement Abdomen: Present: normal appearance, soft Uterus: Present: fundal height below umbilicus Extremities: Present: normal Incision: Present: normal, dry, intact - Labs Labs: Abnormal lab results 01/31/18 Range/Units 12:08 Hgb 8.3 L D (10.1-14.3) gm/dl Hct 24.7 L D (30.3-42.9) %
[2018-01-31] MEDS ORDERED: AMBIEN PO PRN (21:39)
[2018-02-01] MEDS: MOTRIN PO SCH (05:33)
--- NOTE | 2018-02-01 08:41 | Progress Note ---
Assessment and Plan A/P PPD2 non viable female PPD1 retained placenta d and e doing well anemia-iron supplements d/c home with f/u in 2 weeks Subjective - Subjective Date of service: 02/01/18 Principal diagnosis: PPROM at 22w6d, Anhydramnios Interval history: This is a 22 yo at 22+5 weeks admitted to labor and delviery after dx with gross rupture with TAMARA 0. Patient states that she has had an uneventful . Patient reports: appetite normal, voiding normally, pain well controlled, flatus , ambulating normally : Objective - Vital Signs Latest vital signs: Vital Signs Temp Pulse Resp BP BP Pulse Ox 02/01/18 06:33 16 02/01/18 05:33 20 02/01/18 04:00 98.7 F 66 16 118/57 02/01/18 00:00 98.7 F 87 18 114/87 01/31/18 22:50 16 01/31/18 19:30 98.7 F 71 16 115/66 01/31/18 16:23 98.4 F 98 H 16 105/50 97 01/31/18 14:59 96/44 01/31/18 12:20 95/44 01/31/18 11:28 100 01/31/18 11:27 98.2 F 76 18 91/44 100 Intake and Output 01/31/18 02/01/18 02/01/18 23:59 07:59 15:59 Intake Total 300 Balance 300 Intake: Intake, Free Water 300 - Exam Breasts: Present: normal Cardiovascular: Present: Regular rate, Normal S1 Lungs: Present: Clear to auscultation, Normal air movement Abdomen: Present: normal appearance, soft, normal bowel sounds. Absent: distention, tenderness, guarding Vulva: both: normal Uterus: Present: normal, firm, fundal height below umbilicus. Absent: bogginess , tenderness Extremities: Present: normal Deep Tendon Reflex Grade: Normal +2 - Labs Labs: Abnormal lab results 01/31/18 Range/Units 12:08 Hgb 8.3 L D (10.1-14.3) gm/dl Hct 24.7 L D (30.3-42.9) %
--- NOTE | 2018-02-01 08:43 | Discharge Summary ---
Providers - Providers Date of Admission: 01/30/18 15:00 Date of discharge: 02/01/18 Attending physician: ALEXYS SOOD MD Primary care physician: ALEXYS SOOD MD Hospitalization Reason for admission: rupture of membranes Delivery: Episiotomy: none Laceration: none Other procedures: other (d and E) complications: retained placenta Discharge diagnosis: delivery baby: female Hospital course: Patient admitted at 22+5 weeks. Received mag, latency abx, and bmz. She had cord prolapse and delivered fetus female breech. Baby only survicving for 40 min. Patient had retained placenta and had a D and E. Patient did well and d/c home with f/u in 2 weeks Condition at discharge: Good Disposition: DC-01 TO HOME OR SELFCARE Plan - Discharge Medications Prescriptions: Ferrous Sulfate 325 mg PO BID #60 tablet. Ibuprofen [Motrin] 600 mg PO Q8H PRN #30 tablet PRN Reason: Pain - Provider Discharge Summary Additional instructions: [] Smoking cessation referral if applicable(refer to patient education folder for contact #) [] Refer to [facility]'s [facility] Booklet Call your doctor immediately for: * Fever > 100.5 * Heavy vaginal bleeding ( >1 pad per hour) * Severe persistent headache * Shortness of breath * Reddened, hot, painful area to leg or breast * Drainage or odor from incision. * Keep incision clean and dry at all times and follow doctor's instructions regarding bathing/showering - Follow up plan Follow up: ALEXYS SOOD MD [Primary Care Provider] - 7 Days
[2018-02-01 09:53] VITALS: BP 99/50
== END 2018-02-01 10:00 | disposition home or self-care (01) | DRG 767 ==
LOC: TRG 12:42 → LD 15:27 → UNDOADMOB 15:27 → LD 01-30 15:00 → OBSVTOIN 01-30 15:00 → OB 01-31 04:36
PROVIDERS: ADMIT Obstetrics & Gynecology; ATTEND Obstetrics & Gynecology
PROC: 10E0XZZ Delivery of Products of Conception, External Approach (ICD-10-PCS; principal; 2018-01-30)
PROC: 10D17ZZ Extraction of Products of Conception, Retained, Via Natural or Artificial Opening (ICD-10-PCS; 2018-01-30)
DX: O42.912 Preterm premature rupture of membranes, unspecified as to length of time between rupture and onset of labor, second trimester (principal); O60.12X0 Preterm labor second trimester with preterm delivery second trimester, not applicable or unspecified; O99.214 Obesity complicating childbirth; E66.9 Obesity, unspecified; O40.2XX0 Polyhydramnios, second trimester, not applicable or unspecified; O32.1XX0 Maternal care for breech presentation, not applicable or unspecified; O69.0XX0 Labor and delivery complicated by prolapse of cord, not applicable or unspecified; O99.03 Anemia complicating the puerperium; D64.9 Anemia, unspecified; Z3A.22 22 weeks gestation of pregnancy; Z68.36 Body mass index [BMI] 36.0-36.9, adult; Z91.013 Allergy to seafood; O76 Abnormality in fetal heart rate and rhythm complicating labor and delivery; O72.0 Third-stage hemorrhage; Z37.0 Single live birth
CPT/HCPCS: 36415; 76815; 81001; 83735; 85014; 85018; 85025; 86850; 86900; 86901; 88305; J0290; J0330; J0456; J0690; J0702; J2590; J2704; J2765; J3010; J3475; J7050; J7120

== ENCOUNTER 2018-02-03 10:50 | Inpatient (IN) | payer MEDICAID ==
[2018-02-03] MEDS ORDERED: LACTATED RINGERS 1,000 ML IV SCH (13:00)
--- NOTE | 2018-02-03 13:16 | History and Physical Report ---
History of Present Illness Date of examination: 02/03/18 Date of admission: 02/03/18 11:14 Chief complaint: fever at home of 102 after hospital discharge History of present illness: This is a 22 yo G P who had a PPROm with cord prolapse and D&E for retained placenta. She went home on Thursday but started having one day ago. Last night she stated that she had fever chills and fever as high as 102. She denies any urination nor frequency. She denies any sob nor cp. No other sx noted. Past History Past Medical History: no pertinent history Past Surgical History: D&C Social history: single. denies: smoking, alcohol abuse, prescription drug abuse - Obstetrical History : 3 Medications and Allergies Allergies Allergy/AdvReac Type Severity Reaction Status Date / Time shellfish derived Allergy Hives Verified 07/21/14 13:31 Home Medications Medication Instructions Recorded Confirmed Last Taken Type Ferrous Sulfate 325 mg PO BID #60 tablet. 02/01/18 Unknown Rx Ibuprofen [Motrin] 600 mg PO Q8H PRN #30 tablet 02/01/18 Unknown Rx oxyCODONE /ACETAMINOPHEN [Percocet 1 tab PO Q6HR PRN #10 tablet 02/01/18 Unknown Rx 5/325] Active Meds: Active Medications Lactated Ringer's (Lactated Ringers) 1,000 mls @ 125 mls/hr IV DIRECT OMAR Review of Systems All systems: negative Constitutional: fever, chills, sweats, night sweats - Vital Signs Vital signs: Vital Signs Temp Pulse Resp BP Pulse Ox 98.8 F 115 H 18 102/56 100 02/03/18 11:50 02/03/18 11:50 02/03/18 11:50 02/03/18 11:50 02/03/18 11:50 Temp Pulse Resp BP Pulse Ox 98.8 F 115 H 18 102/56 100 02/03/18 11:50 02/03/18 11:50 02/03/18 11:50 02/03/18 11:50 02/03/18 11:50 - Physical Exam Breasts: Positive: normal Cardiovascular: Regular rate, Normal S1 Lungs: Positive: Clear to auscultation, Normal air movement Abdomen: Positive: normal appearance, soft, normal bowel sounds. Negative: distention, tenderness, guarding Genitourinary (Female): Positive: normal external genitalia, normal perenium Uterus: Positive: normal size. Negative: tender Anus/Rectum: Positive: normal perianal skin Extremities: Positive: normal Deep Tendon Reflex Grade: Normal +2 Results All other labs normal. Assessment and Plan A/P PPD/POD Breech vaginal delivery and D&E fever w/u cbc, urine culture blood culture chest xray consult with ID close monitor of maternal status
[2018-02-03] MEDS ORDERED: DULCOLAX PR PRN (13:20)
[2018-02-03] MEDS ORDERED: TYLENOL PO PRN (13:20)
[2018-02-03] MEDS ORDERED: TUCKS PAD TP PRN (13:20)
[2018-02-03] MEDS ORDERED: ZOFRAN IV PRN (13:20)
[2018-02-03] MEDS ORDERED: LANSINOH TP PRN (13:20)
[2018-02-03] MEDS ORDERED: MILK OF MAGNESIA PO PRN (13:20)
[2018-02-03] MEDS ORDERED: PHENERGAN PO PRN (13:20)
[2018-02-03] MEDS ORDERED: PHENERGAN PR PRN (13:20)
[2018-02-03] MEDS ORDERED: BENADRYL PO PRN (13:20)
[2018-02-03] MEDS ORDERED: TORADOL IV PRN (13:20)
[2018-02-03] MEDS ORDERED: NORCO 5/325 PO PRN (13:20)
[2018-02-03] MEDS ORDERED: SODIUM CHLORIDE FLUSH SYRINGE 10 ML IV SCH (14:00)
[2018-02-03] MEDS: PERCOCET 5/325 PO PRN ×2 (14:00→20:23)
[2018-02-03] MEDS: MOTRIN PO SCH ×2 (14:00→20:22)
[2018-02-03 14:17] LABS: Hematocrit 27.4 % (30.3-42.9); Mean Corpuscular HGB Conc 33 % (30-34); Mean Corpuscular Hemoglobin 28 pg (28-32); Mean Corpuscular Volume 87 fl (79-97); Platelet Count 198 K/mm3 (140-440); Red Blood Count 3.17 M/mm3 (3.65-5.03); Red Cell Distribution Width 14.4 % (13.2-15.2)
[2018-02-03 15:12] LABS: Basophils % (Manual) 0 % (0.0-1.8); Eosinophils % (Manual) 0 % (0.0-4.3); Total Cells Counted 100
[2018-02-03 15:13] LABS: Anisocytosis 1+; Large Platelets Few; Platelet Estimate Cons
--- NOTE | 2018-02-03 18:39 | Consultation ---
History of Present Illness - Reason for Consult Consult date: 02/03/18 SIRS Requesting physician: ALEXYS SOOD - History of Present Illness 22 yo female admitted 02/03/18 with 23 weeks with premature rupture of membranes with cord prolapse and dilation and evacuation for retained placenta. She reports contraction for 48h and fever at 102 for 24h before admission. She denies any dysuria, hematuria, cough. Upon admission, temp 98.8, HR 115, R 1, BP 102/53. WBC 20.1. Hg 9. Plat 198. Micro: Blood cx 02/03 ngtd Abx: none Past History Past Surgical History: No surgical history Social history: single. denies: smoking, alcohol abuse, prescription drug abuse Medications and Allergies Allergies Allergy/AdvReac Type Severity Reaction Status Date / Time shellfish derived Allergy Hives Verified 07/21/14 13:31 Home Medications Medication Instructions Recorded Confirmed Last Taken Type Ferrous Sulfate 325 mg PO BID #60 tablet. 02/01/18 Unknown Rx Ibuprofen [Motrin] 600 mg PO Q8H PRN #30 tablet 02/01/18 Unknown Rx oxyCODONE /ACETAMINOPHEN [Percocet 1 tab PO Q6HR PRN #10 tablet 02/01/18 Unknown Rx 5/325] Active Meds: Active Medications Acetaminophen (Tylenol) 650 mg PO Q4H PRN PRN Reason: Pain MILD(1-3)/Fever >100.5/CHILDERS Acetaminophen/Hydrocodone Bitart ([place] 5/325) 2 each PO Q6H PRN PRN Reason: Pain, Moderate (4-6) Bisacodyl (Dulcolax) 10 mg FL BID PRN PRN Reason: Constipation Diphenhydramine HCl (Benadryl) 25 mg PO Q6H PRN PRN Reason: Itching Docusate Sodium (Colace) 100 mg PO BID OMAR Lactated Ringer's (Lactated Ringers) 1,000 mls @ 125 mls/hr IV DIRECT OMAR Ibuprofen (Motrin) 600 mg PO Q6HR OMAR Last Admin: 02/03/18 14:00 Dose: 600 mg Ketorolac Tromethamine (Toradol) 30 mg IV Q6H PRN PRN Reason: Pain, Moderate (4-6) Stop: 02/08/18 13:19 Magnesium Hydroxide (Milk Of Magnesia) 30 ml PO HS PRN PRN Reason: Constipation Multi-Ingredient Ointment (Lansinoh) 1 applic TP PRN PRN PRN Reason: Sore Nipples Ondansetron HCl (Zofran) 4 mg IV Q8H PRN PRN Reason: Nausea And Vomiting Oxycodone/Acetaminophen (Percocet 5/325) 1 tab PO Q6H PRN PRN Reason: Pain, Moderate (4-6) Last Admin: 02/03/18 14:00 Dose: 1 tab Promethazine HCl (Phenergan) 25 mg FL Q6H PRN PRN Reason: Nausea And Vomiting Promethazine HCl (Phenergan) 25 mg PO Q6H PRN PRN Reason: Nausea And Vomiting Sodium Chloride (Sodium Chloride Flush Syringe 10 Ml) 10 ml IV PRN OMAR [place]/Glycerin (Tucks Pad) 1 each TP PRN PRN PRN Reason: Hemorrhoid/cleansing/soothing Physical Examination - Physical Exam Narrative exam: Alert in NAD NC, AT, NADJA, clear OP Neck no LN Chest CTA mike CV RRR Abd soft obese mild tenderness Skin no rash Neuro alert oriented - Constitutional Vitals: Vital Signs Temp Pulse Resp BP Pulse Ox 98.8 F 115 H 18 102/56 100 02/03/18 11:50 02/03/18 11:50 02/03/18 11:50 02/03/18 11:50 02/03/18 11:50 Temperature -Last 24 Hours Temperature 98.8 F Results - Labs CBC & Chem 7: 02/03/18 13:27 Labs: Abnormal lab results 02/03/18 Range/Units 13:27 WBC 20.1 H (4.5-11.0) K/mm3 RBC 3.17 L (3.65-5.03) M/mm3 Hgb 9.0 L (10.1-14.3) gm/dl Hct 27.4 L (30.3-42.9) % Seg Neuts % (Manual) 86.0 H (40.0-70.0) % Lymphocytes % (Manual) 5.0 L (13.4-35.0) % Nucleated RBC % 2.0 H (0.0-0.9) % Seg Neutrophils # Man 17.3 H (1.8-7.7) K/mm3 Lymphocytes # (Manual) 1.0 L (1.2-5.4) K/mm3 Assessment and Plan Assessment: 1) SIRS: present on admission, manifested by tachycardia, hypotension, leukocytosis; source likely bacterial endometritis, should r/o UTI, bacteremia, pneumonia 2) 23 weeks with premature rupture of membranes with cord prolapse s/ p dilation and evacuation for retained placenta. 3) Anemia Plan: -f/u blood cultures -obtain UA and urine cultures -check CXR -start zosyn IV -monitor leukocytosis Thanks for consultation Florence Garcia MD
[2018-02-03] MEDS: COLACE PO SCH (20:22)
[2018-02-03 21:43] LABS: Bacteria,Urine 2+ /HPF (Negative); Bilirubin,Urine NEG (Negative); Blood,Urine LG (Negative); Color,Urine Yellow (Yellow); Mucus,Urine FEW /HPF; Urobilinogen,Urine < 2.0 mg/dL (<2.0)
[2018-02-03 21:44] LABS: WBC,Urine > 182.0 /HPF (0.0-6.0)
[2018-02-03] MEDS ORDERED: ZOSYN/NS 4.5GM/100ML 4.5 GM/100 ML VIAL IV ONE (22:00)
--- NOTE | 2018-02-03 23:58 | XRay Report ---
FINAL REPORT PROCEDURE: XR CHEST ROUTINE 2V TECHNIQUE: PA and lateral chest radiographs were obtained. CPT 54769 HISTORY: Fever COMPARISON: No prior studies are available for comparison. FINDINGS: Heart: Normal. Mediastinum/Vessels: Normal. Lungs/Pleural space: Normal. Bony thorax: No acute osseous abnormality. Other: IMPRESSION: Normal examination.
[2018-02-04] MEDS: MOTRIN PO SCH ×4 (01:59→23:33)
[2018-02-04] MEDS: PERCOCET 5/325 PO PRN ×3 (02:01→18:10)
[2018-02-04] MEDS: ZOSYN/NS 4.5GM/100ML 4.5 GM/100 ML VIAL IV SCH ×3 (06:39→22:31)
--- NOTE | 2018-02-04 08:16 | Progress Note ---
Assessment and Plan A/P: HD#2 admitted with Urosepsis s/p 22 wk breech vaginal delivery after 22 wk PPROM Infectious disease consult much appreciated Urine culture pending Continue to monitor clinically Subjective - Subjective Date of service: 02/04/18 Principal diagnosis: Urosepsis Interval history: Pt feels much better since admission and administration of antibiotics. Chest X ray normal. Blood cultures pending. Patient reports: appetite normal, voiding normally Objective - Vital Signs Latest vital signs: Vital Signs Temp Pulse Pulse Resp BP BP Pulse Ox 02/04/18 05:40 98 F 84 16 93/42 98 02/04/18 01:59 20 02/04/18 00:43 98.1 F 87 18 94/44 02/03/18 20:22 20 02/03/18 20:10 94 H 20 02/03/18 19:49 98.3 F 102 H 16 102/61 98 02/03/18 17:20 98.2 F 86 18 101/56 02/03/18 11:50 98.8 F 115 H 18 102/56 100 Intake and Output 02/03/18 02/04/18 02/04/18 22:59 06:59 14:59 Intake Total 600 480 Output Total 600 700 Balance 0 -220 Intake: Oral 360 Intake, Free Water 240 480 Output: Urine 600 700 Void 600 700 Other: Total, Intake Amount 360 Total, Output Amount 600 300 Voiding Method Toilet # Voids Void 1 - Exam Breasts: Present: deferred Cardiovascular: Present: Regular rate Lungs: Present: Clear to auscultation Abdomen: Present: soft Uterus: Present: fundal height below umbilicus. Absent: tenderness Extremities: Present: normal - Labs Labs: Abnormal lab results 02/03/18 02/03/18 Range/Units 13:27 21:15 WBC 20.1 H (4.5-11.0) K/mm3 RBC 3.17 L (3.65-5.03) M/mm3 Hgb 9.0 L (10.1-14.3) gm/dl Hct 27.4 L (30.3-42.9) % Seg Neuts % (Manual) 86.0 H (40.0-70.0) % Lymphocytes % (Manual) 5.0 L (13.4-35.0) % Nucleated RBC % 2.0 H (0.0-0.9) % Seg Neutrophils # Man 17.3 H (1.8-7.7) K/mm3 Lymphocytes # (Manual) 1.0 L (1.2-5.4) K/mm3 Urine WBC (Auto) > 182.0 H (0.0-6.0) /HPF
[2018-02-04] MEDS: COLACE PO SCH ×2 (09:57→22:30)
[2018-02-04 12:02] LABS: Hemoglobin 7.7 gm/dl (10.1-14.3); Mean Corpuscular HGB Conc 34 % (30-34); Mean Corpuscular Hemoglobin 29 pg (28-32); Mean Corpuscular Volume 87 fl (79-97); Platelet Count 194 K/mm3 (140-440); Red Blood Count 2.63 M/mm3 (3.65-5.03); Red Cell Distribution Width 14.4 % (13.2-15.2)
[2018-02-04 14:52] LABS: Band Neutrophils # (Manual) 0.8 K/mm3; Eosinophils % (Manual) 0 % (0.0-4.3); Total Cells Counted 100
[2018-02-04 14:53] LABS: Anisocytosis 1+; Platelet Estimate Consistent w Auto
[2018-02-05] MEDS: MOTRIN PO SCH ×2 (05:35→11:51)
[2018-02-05] MEDS: ZOSYN/NS 4.5GM/100ML 4.5 GM/100 ML VIAL IV SCH ×2 (06:45→13:37)
--- NOTE | 2018-02-05 09:48 | Progress Note ---
Assessment and Plan Assessment: 1) Sepsis: resolved; source likely bacterial endometritis +/- UTI. Blood cx negative. CXR neg. 2) 23 weeks with premature rupture of membranes with cord prolapse s/ p dilation and evacuation for retained placenta. 3) Presumed endometritis 4) UTI: urine cx pending Plan: -f/u urine culture -continue zosyn -monitor leukocytosis -Ok to d/c home from ID stand point on augmentin 875 mg po q12h total 10 days until 02/12 I am signing off Thanks for consultation Florence Garcia MD Subjective Date of service: 02/05/18 Principal diagnosis: Urosepsis Interval history: Feels better. No fever. Still bloody vaginal discharge mild. No abdominal pain. Micro: Blood cx 02/03 ngtd Urine cx 02/03 pending Abx: zosyn 02/04 Objective - Exam Narrative Exam: Alert in NAD NC, AT, NADJA, clear OP Neck no LN Chest CTA mike CV RRR Abd soft obese mild tenderness Skin no rash Neuro alert oriented - Constitutional Vitals: Vital Signs Temp Pulse Resp BP Pulse Ox 98.7 F 93 H 20 109/64 98 02/05/18 08:44 02/05/18 08:44 02/05/18 08:44 02/05/18 08:44 02/05/18 08:44 Temperature -Last 24 Hours Temperature 98.7 F Temperature 98.2 F Temperature 98.2 F Temperature 98.2 F Temperature 97.5 F Temperature 98.4 F - Labs CBC & Chem 7: 02/04/18 11:37 Labs: Abnormal lab results 02/04/18 Range/Units 11:37 WBC 13.4 H (4.5-11.0) K/mm3 RBC 2.63 L (3.65-5.03) M/mm3 Hgb 7.7 L (10.1-14.3) gm/dl Hct 23.0 L (30.3-42.9) % Lymphocytes % (Manual) 13.0 L (13.4-35.0) % Monocytes % (Manual) 10.0 H (0.0-7.3) % Seg Neutrophils # Man 9.1 H (1.8-7.7) K/mm3 Monocytes # (Manual) 1.3 H (0.0-0.8) K/mm3
[2018-02-05] MEDS: COLACE PO SCH (11:51)
--- NOTE | 2018-02-05 13:18 | Progress Note ---
Assessment and Plan A/P HD#3 admitted with Urosepsis s/p 22 wk breech vaginal delivery after 22 wk PPROM patient improved on zosyn Urine culture pending if cbc trending down will d/c home todway on augmentin for 10 days and f/ u in clinic in 2 weeks Subjective - Subjective Date of service: 02/05/18 Principal diagnosis: Urosepsis Interval history: This is a 22 yo G P who had a PPROm with cord prolapse and D&E for retained placenta. She went home on Thursday but started having one day ago. Last night she stated that she had fever chills and fever as high as 102. She denies any urination nor frequency. She denies any sob nor cp. No other sx noted. Patient reports: appetite normal, voiding normally, pain well controlled, flatus , ambulating normally Objective - Vital Signs Latest vital signs: Vital Signs Temp Pulse Resp BP Pulse Ox 02/05/18 08:44 98.7 F 93 H 20 109/64 98 02/05/18 04:20 98.2 F 75 18 104/50 02/05/18 00:00 98.2 F 71 18 101/50 02/04/18 20:00 98.2 F 85 18 96/51 02/04/18 15:30 97.5 F L 97 H 18 108/52 02/04/18 15:21 98.4 F 79 20 125/80 99 Intake and Output 02/04/18 02/05/18 02/05/18 23:59 07:59 15:59 Intake Total 340 240 Output Total 400 Balance 340 -160 Intake: IV 100 ZOSYN/NS 4.5GM/100ML 4.5 100 gm In 100 ml @ 200 mls/hr IV Q8HR [facility] Rx#: [id number] Oral 240 240 Output: Urine 400 Void 400 Other: Total, Intake Amount 240 240 Total, Output Amount 400 # Voids Void 1 - Exam Breasts: Present: normal Cardiovascular: Present: Regular rate, Normal S1 Lungs: Present: Clear to auscultation, Normal air movement Abdomen: Present: normal appearance, soft, normal bowel sounds. Absent: distention, tenderness, guarding Vulva: both: normal Uterus: Present: normal, firm. Absent: bogginess, tenderness Extremities: Present: normal Deep Tendon Reflex Grade: Normal +2 Incision: Present: normal - Labs Labs: Abnormal lab results 02/04/18 Range/Units 11:37 Lymphocytes % (Manual) 13.0 L (13.4-35.0) % Monocytes % (Manual) 10.0 H (0.0-7.3) % Seg Neutrophils # Man 9.1 H (1.8-7.7) K/mm3 Monocytes # (Manual) 1.3 H (0.0-0.8) K/mm3
--- NOTE | 2018-02-05 13:23 | Discharge Summary ---
Providers - Providers Date of Admission: 02/03/18 11:14 Date of discharge: 02/05/18 Attending physician: ALEXYS SOOD MD 02/03/18 13:20 Consult to Physician [CONS] Urgent Comment: Consulting Provider: ZAIDA ORO Physician Instructions: Reason For Exam: post op fever Primary care physician: ALEXYS SOOD MD Hospitalization Reason for admission: other Hospital course: patient admitted for fever. Dx with urosepsis. On zosyn with defervescent. Did well. Afebrile and clinically improved. D/c home with 10 days of augmentin. Condition at discharge: Good Disposition: DC-01 TO HOME OR SELFCARE Plan - Discharge Medications Prescriptions: Amoxicillin/K Clav Tab [Augmentin 875 mg] 1 tab PO Q12HR 10 Days #20 tab - Provider Discharge Summary Activity: routine, no sex for 6 weeks, no strenuous exercise Diet: routine Additional instructions: [] Smoking cessation referral if applicable(refer to patient education folder for contact #) [] Refer to [facility]'s [facility] Booklet Call your doctor immediately for: * Fever > 100.5 * Heavy vaginal bleeding ( >1 pad per hour) * Severe persistent headache * Shortness of breath * Reddened, hot, painful area to leg or breast * Drainage or odor from incision. * Keep incision clean and dry at all times and follow doctor's instructions regarding bathing/showering - Follow up plan Follow up: ALEXYS SOOD MD [Primary Care Provider] - 14 Days
[2018-02-05 13:47] VITALS: BP 104/55
[2018-02-05 14:18] LABS: Hematocrit 24.5 % (30.3-42.9); Hemoglobin 8.2 gm/dl (10.1-14.3); Mean Corpuscular HGB Conc 34 % (30-34); Mean Corpuscular Hemoglobin 30 pg (28-32); Mean Corpuscular Volume 88 fl (79-97); Platelet Count 228 K/mm3 (140-440); Red Blood Count 2.78 M/mm3 (3.65-5.03); Red Cell Distribution Width 14.4 % (13.2-15.2)
[2018-02-05 15:54] LABS: Basophils % (Manual) 0 % (0.0-1.8); Myelocytes # (Manual) 0.1 K/mm3; Total Cells Counted 100
[2018-02-05 15:55] LABS: Anisocytosis 1+
== END 2018-02-05 15:00 | disposition home or self-care (01) | DRG 776 ==
LOC: UNDOADMIN 10:50 → 3A 10:50 → OB 11:14
PROVIDERS: ADMIT Obstetrics & Gynecology; ATTEND Obstetrics & Gynecology
DX: O86.20 Urinary tract infection following delivery, unspecified (principal); Z91.013 Allergy to seafood; O90.81 Anemia of the puerperium; D64.9 Anemia, unspecified; B96.20 Unspecified Escherichia coli [E. coli] as the cause of diseases classified elsewhere
CPT/HCPCS: 36415; 71046; 81001; 85007; 85025; 87040; 87076; 87086; 87186; J2543; J7120

== ENCOUNTER 2018-08-22 00:39 | Emergency (ER) | payer SELFPAY | END 2018-08-22 01:00 | disposition left against medical advice (07) | LOC: ED 00:39 ==

== ENCOUNTER 2018-10-02 07:57 | Day surgery (SDC) | payer MEDICAID ==
[2018-10-02 08:40] LABS: Hematocrit 34.3 % (30.3-42.9); Hemoglobin 11.4 gm/dl (10.1-14.3); Mean Corpuscular HGB Conc 33 % (30-34); Mean Corpuscular Volume 82 fl (79-97); Platelet Count 230 K/mm3 (140-440); Red Blood Count 4.17 M/mm3 (3.65-5.03); Red Cell Distribution Width 17.7 % (13.2-15.2)
[2018-10-02] MEDS ORDERED: LACTATED RINGERS 1,000 ML ONE ×2 (09:04→10:34)
[2018-10-02] MEDS ORDERED: ROBINUL ONE (10:24)
[2018-10-02] MEDS ORDERED: NEO SYNEPHRINE/NS Syringe(OR USE) IV ONE (10:25)
[2018-10-02] MEDS ORDERED: ZOFRAN IV PRN (10:29)
[2018-10-02] MEDS ORDERED: SUBLIMAZE IV PRN (10:29)
--- NOTE | 2018-10-02 10:30 | Anesthesia Day of Surgery ---
Anesthesia Day of Surgery - Day of Surgery Patient Examined: Yes Patient H&P Reviewed: Yes Patient is NPO: Yes
--- NOTE | 2018-10-02 10:32 | Anesthesia Consultation ---
Anesthesia Consult and Med Hx Date of service: 10/02/18 - Airway Anesthetic Teeth Evaluation: Chipped ROM Head & Neck: Adequate Mental/Hyoid Distance: Adequate Mallampati Class: Class II Intubation Access Assessment: Probably Good - Pre-Operative Health Status ASA Pre-Surgery Classification: ASA2, Emergency Proposed Anesthetic Plan: General, Spinal - Pulmonary Hx Asthma: No COPD: No Hx Pneumonia: No - Cardiovascular System Hx Hypertension: No Hx Heart Attack/AMI: No - Central Nervous System Hx Seizures: No Hx Psychiatric Problems: No - Endocrine Hx Renal Disease: No Hx End Stage Renal Disease: No Hx Hypothyroidism: Yes (Mother) Hx Hyperthyroidism: No - Hematic Hx Anemia: No Hx Sickle Cell Disease: No - Other Systems Hx Alcohol Use: No Hx Cancer: No Hx Obesity: Yes - Additional Comments Anesthesia Medical History Comments: 16 weeks gest. FHR 153. Has had prior labor epidurals
[2018-10-02] MEDS ORDERED: ZOFRAN ONE (10:33)
--- NOTE | 2018-10-02 10:37 | Operative Report ---
Operative Report Operative Report: Operative note Date of surgery 10/02/2018 Date of dictation 10/02/2018 Preop diagnosis: SIUP at 16 weeks gestation Cervical incompetence Postop diagnosis : SIUP at 16 weeks gestation Cervical incompetence Procedure: Badillo Cervical cerclage Surgeon: Pola Ramsay MD Anesthesia: Spinal IVF 2 L Blood loss 20ml UO 50ml clear urine Complications : none Specimen :none Findings: 16 weeks size uterus , normal cervix , external os dilated 1cm, internal os fingertip, cervix soft long midposition The patient was counseled regarding the planned procedure , risks and benefits. Written consent was obtained . FHT were obtained prior to the procedure. The patient was taken to the operating room where a spinal anesthesia was placed and found to be adequate. The patient was positioned in the dorsal lithotomy position with legs supported by stirrups. The perineum was prepped and draped in the usual sterile fashion. Bladder was catheterized. A bimanual exam was performed and the uterus was noted to be 16 weeks in size. Internal os was fingertip, long soft midposition. A weighted speculum was placed into the vaginal and cervix visualized. The anterior lip of the cervix was grasped with a ring forcep. 0 prolone suture placed at the 12 oclock position and exited at the 9oclock position, placed at the 9oclock and exited at the 6oclock , placed at the 6oclock and exited at the 3oclock , placed at the 3oclock and exited at the 12oclock position. 9 knots placed at the 12oclock position. The cervix was visualized with no active bleeding or LOF. The speculum was removed and cervix was found to be closed on exam. All needles, sponges, and instrument counts were correct x2 .The patient tolerated the procedure and was transferred to recovery in stable condition .
--- NOTE | 2018-10-02 10:46 | Post Anesthesia Evaluation ---
- Post Anesthesia Evaluation Patient Participated: Yes Airway Patent: Yes Stable Respiratory Function: Yes Nausea/Vomiting: No Temp > 96.8F: Yes Pain Manageable: Yes Adequeate Hydration: Yes Anesthesia Complications: No Block Receding Appropriately: Yes Patient on Ventilator: No
--- NOTE | 2018-10-02 10:59 | Discharge Summary ---
Providers - Providers Date of Admission: 10/02/2018 Date of discharge: 10/02/18 Attending physician: PIERRE andrade Primary care physician: FUEL OPERATOR Hospitalization Reason for admission: cervical incompetence Condition: Good Procedures: cervical cerclage Hospital course: Pt had an uncomplicated cervical cerclage placed Disposition: -01 TO HOME OR SELFCARE - Discharge Diagnoses (1) Cervical incompetence affecting management of in second trimester, antepartum Status: Acute Core Measure Documentation - Palliative Care Palliative Care/ Comfort Measures: Not Applicable - Core Measures Any of the following diagnoses?: none - VTE Discharge Requirements Deep Vein Thrombosis/Pulmonary Embolism Present on Admission: No Exam - Constitutional Vitals: Temp Pulse Resp BP Pulse Ox 97.6 F 70 20 107/68 100 10/02/18 10:22 10/02/18 10:45 10/02/18 10:45 10/02/18 10:45 10/02/18 10:45 Plan Activity: no restrictions Weight Bearing Status: Full Weight Bearing Diet: regular (Pt advised to avoid anything in the vagina ( no sex tampons or douching) advised to monitor for fevers severe abdominal pain LOF or bleeding ) Follow up with: PRIMARY CARE, [Primary Care Provider] - 7 Days Forms: Outpatient Surgery DC Inst. Pending Studies n/a
[2018-10-06] MEDS ORDERED: SENSORCAINE/DEXTR 0.75-8.25% INFILTRATI ONE (14:54)
== END 2018-10-02 07:58 | disposition home or self-care (01) ==
LOC: OR 07:57 → LAB 07:57 → EDSTATUS 12:55
PROVIDERS: ATTEND Obstetrics & Gynecology
DX: O34.32 Maternal care for cervical incompetence, second trimester (principal); O99.282 Endocrine, nutritional and metabolic diseases complicating pregnancy, second trimester; O99.212 Obesity complicating pregnancy, second trimester; E03.9 Hypothyroidism, unspecified; E66.9 Obesity, unspecified; Z68.32 Body mass index [BMI] 32.0-32.9, adult; Z3A.16 16 weeks gestation of pregnancy; Z79.899 Other long term (current) drug therapy; Z91.013 Allergy to seafood
CPT/HCPCS: 36415; 59320; 85027; J2370; J2405; J7120

== ENCOUNTER 2019-03-04 10:50 | Inpatient (IN) | payer MEDICAID ==
--- NOTE | 2019-03-04 11:49 | Anesthesia Consultation ---
Anesthesia Consult and Med Hx Date of service: 03/04/19 - Airway Anesthetic Teeth Evaluation: Good ROM Head & Neck: Adequate Mental/Hyoid Distance: Adequate Mallampati Class: Class III Intubation Access Assessment: Possibly Difficult - Pulmonary Exam CTA: Yes - Cardiac Exam Cardiac Exam: RRR - Pre-Operative Health Status ASA Pre-Surgery Classification: ASA2 Proposed Anesthetic Plan: Spinal - Pulmonary Hx Smoking: No Hx Respiratory Symptoms: No - Cardiovascular System Hx Hypertension: No Hx Heart Attack/AMI: No Hx Percutaneous Transluminal Coronary Angioplasty (PTCA): No Hx Cardia Arrhythmia: No - Central Nervous System Hx Neuromuscular Disorder: No Hx Seizures: No CVA: No Hx Psychiatric Problems: No - Gastrointestinal Hx Gastroesophageal Reflux Disease: No - Endocrine Hx Renal Disease: No Hx Liver Disease: No Hx Insulin Dependent Diabetes: No Hx Non-Insulin Dependent Diabetes: No Hx Thyroid Disease: No - Other Systems Hx Obesity: Yes - Additional Comments Anesthesia Medical History Comments: 38w3d scheduled for cerclage removal. No hx anesthetic complications. Denies use of blood thinners or hx bleeding disorders.
--- NOTE | 2019-03-04 11:50 | Anesthesia Day of Surgery ---
Anesthesia Day of Surgery - Day of Surgery Patient Examined: Yes Patient H&P Reviewed: Yes Patient is NPO: Yes
[2019-03-04 12:06] LABS: Basophils % (Auto) 0.6 % (0.0-1.8); Eosinophils # (Auto) 0.1 K/mm3 (0.0-0.4); Eosinophils % (Auto) 1.6 % (0.0-4.3); Hematocrit 36.4 % (30.3-42.9); Hemoglobin 12.4 gm/dl (10.1-14.3); Lymphocytes # (Auto) 1.6 K/mm3 (1.2-5.4); Lymphocytes % (Auto) 25.2 % (13.4-35.0); Mean Corpuscular HGB Conc 34 % (30-34); Mean Corpuscular Volume 88 fl (79-97); Monocytes # (Auto) 0.7 K/mm3 (0.0-0.8); Monocytes % (Auto) 11.2 % (0.0-7.3); Platelet Count 152 K/mm3 (140-440); Red Blood Count 4.13 M/mm3 (3.65-5.03); Red Cell Distribution Width 15.7 % (13.2-15.2)
[2019-03-04] MEDS: LACTATED RINGERS 1,000 ML IV SCH (12:19)
[2019-03-04] MEDS ORDERED: ROBINUL ONE ×2 (13:28→14:12)
[2019-03-04] MEDS ORDERED: NACL 0.9% IR ONE (13:35)
[2019-03-04] MEDS ORDERED: SUBLIMAZE ONE (13:47)
--- NOTE | 2019-03-04 14:11 | Operative Report ---
Operative Report Operative Report: PREOPERATIVE DIAGNOSES: 1. IUP 38 weeks 2. Badillo cerclage SURGEON: Dr. Sharon Washington MD POSTOPERATIVE DIAGNOSES: 1.-2 ZENAIDA PROCEDURE PERFORMED: 1.Cerclage removal ANESTHESIA:Spinal ESTIMATED BLOOD LOSS: Less than 10 cc. INDICATIONS: This is a 23-year-old -Malagasy female that presents at 38 weeks with attemped cerclage removal in office x . Patient here for removal at term. PROCEDURE: The patient was consented and seen in the preoperative suite. She was taken to the operative suite, placed in a dorsal lithotomy position, and placed under Spinal . She was prepped and draped in the normal sterile fashion. Her bladder was drained with the red Stover catheter which produced approximately 20 cc of clear yellow urine. A bimanual exam was done, was performed by myself. Suture could be palpated on inner peortion of cervix on the left and released with scissors. Moderate bleeding note on left with pressure decreased. The entire time heart rate monitored. An audible variable heard. Patient transferred to L and d as the cervix noted to be 5/80/-1 with bulging bag. Patient transferred to L&D for evaluation of labor .
[2019-03-04] MEDS ORDERED: ZOFRAN ONE (14:12)
[2019-03-04] MEDS ORDERED: NEO SYNEPHRINE ONE (14:12)
[2019-03-04] MEDS ORDERED: MINERAL OIL PO PRN (15:00)
[2019-03-04] MEDS ORDERED: NARCAN 0.4 MG/1 ML IV PRN (15:00)
[2019-03-04] MEDS ORDERED: AMPICILLIN/NS 2 GM/100 ML 2 GM/100 ML BAG IV ONE (15:00)
[2019-03-04] MEDS ORDERED: LACTATED RINGERS 1,000 ML IV SCH (15:00)
[2019-03-04] MEDS ORDERED: PITOCin/NS 30 UNIT/500ML 30 UNITS/500 ML BAG IV SCH ×2 (15:00)
[2019-03-04] MEDS ORDERED: BRETHINE SUB-Q PRN (15:00)
[2019-03-04] MEDS ORDERED: XYLOCAINE 2% INFILTRATI ONE (15:00)
[2019-03-04] MEDS ORDERED: PITOCin/NS 20 UNIT/1000ML DRIP 20 UNITS/1,000 ML BAG IV SCH (15:00)
[2019-03-04] MEDS ORDERED: PHENERGAN PR PRN (15:00)
[2019-03-04] MEDS ORDERED: BRETHINE IVP PRN (15:00)
[2019-03-04] MEDS ORDERED: STADOL IV PRN (15:00)
[2019-03-04] MEDS ORDERED: SUBLIMAZE IV PRN (15:00)
[2019-03-04] MEDS ORDERED: ZOFRAN IV PRN (15:00)
--- NOTE | 2019-03-04 15:24 | Post Anesthesia Evaluation ---
- Post Anesthesia Evaluation Patient Participated: Yes Airway Patent: Yes Stable Respiratory Function: Yes Nausea/Vomiting: No Temp > 96.8F: Yes Pain Manageable: Yes Adequeate Hydration: Yes Anesthesia Complications: No
[2019-03-04 16:00] LABS: Hematocrit 35.4 % (30.3-42.9); Hemoglobin 11.8 gm/dl (10.1-14.3); Mean Corpuscular HGB Conc 33 % (30-34); Mean Corpuscular Volume 89 fl (79-97); Platelet Count 147 K/mm3 (140-440); Red Blood Count 3.99 M/mm3 (3.65-5.03)
--- NOTE | 2019-03-04 16:10 | History and Physical Report ---
History of Present Illness Date of examination: 03/04/19 Date of admission: 03/04/19 15:00 Chief complaint: s/p cerclage , advanced dilatation History of present illness: This is a 23 yo at 38 weeks. She had cerclage removed and noted to be 5/80/-1. She is admitted for observation for labor. She is patient of [facility] Past History Past Medical History: no pertinent history Past Surgical History: no surgical history, D&C, other (cerclage) Family/Genetic History: none Social history: single. denies: smoking, alcohol abuse, prescription drug abuse - Obstetrical History Expected Date of Delivery: 03/16/19 Actual Gestation: 38 Week(s) 2 Day(s) : 3 Para: 2 Hx # Term Pregnancies: 0 Number of Pregnancies: 1 Spontaneous Abortions: 0 Induced : 0 Number of Living Children: 1 Medications and Allergies Allergies Allergy/AdvReac Type Severity Reaction Status Date / Time shellfish derived Allergy Hives Verified 03/03/19 16:06 Home Medications Medication Instructions Recorded Confirmed Last Taken Type Vit,Calc76/Iron/Folic 1 tab PO DAILY 12/05/18 03/04/19 03/03/19 09:00 History [Pnv 29-1 Tablet] Active Meds: Active Medications Butorphanol Tartrate (Stadol) 2 mg IV Q2H PRN PRN Reason: Pain , Severe (7-10) Ephedrine Sulfate (Ephedrine Sulfate) 10 mg IV Q2M PRN PRN Reason: Hypotension Fentanyl (Sublimaze) 100 mcg IV Q2H PRN PRN Reason: Labor Pain Lactated Ringer's (Lactated Ringers) 1,000 mls @ 100 mls/hr IV DIRECT OMAR Last Admin: 03/04/19 12:19 Dose: 100 mls/hr Documented by: Oxytocin/Sodium Chloride (Pitocin/Ns 20 Unit/1000ml Drip) 20 units in 1,000 mls @ 125 mls/hr IV DIRECT OMAR Oxytocin/Sodium Chloride (Pitocin/Ns 30 Unit/500ml) 30 units in 500 mls @ 1 mls/hr IV TITR OMAR; Protocol Oxytocin/Sodium Chloride (Pitocin/Ns 30 Unit/500ml) 30 units in 500 mls @ 0 mls/hr IV TITR OMAR; Protocol Lactated Ringer's (Lactated Ringers) 1,000 mls @ 125 mls/hr IV DIRECT OMAR Mineral Oil (Mineral Oil) 30 ml PO QHS PRN PRN Reason: Constipation Naloxone HCl (Narcan 0.4 Mg/1 Ml) 0.1 mg IV Q2MIN PRN PRN Reason: Res Rate </= 8 or 02 SAT < 92% Ondansetron HCl (Zofran) 4 mg IV Q8H PRN PRN Reason: Nausea And Vomiting Promethazine HCl (Phenergan) [address] Q6H PRN PRN Reason: N/V if unable to take po Terbutaline Sulfate (Brethine) 0.25 mg SUB-Q ONCE PRN PRN Reason: Hyperstimulation/Hypertonicity Terbutaline Sulfate (Brethine) 0.25 mg IVP ONCE PRN PRN Reason: Hyperstimulation/Hypertonicity Review of Systems All systems: negative - Vital Signs Vital signs: Vital Signs Temp Pulse Resp BP Pulse Ox 98.3 F 85 20 110/63 98 03/04/19 11:25 03/04/19 11:25 03/04/19 11:25 03/04/19 11:25 03/04/19 11:25 Temp Pulse Resp BP Pulse Ox 98.3 F 93 H 20 104/68 98 03/04/19 11:30 03/04/19 15:52 03/04/19 11:30 03/04/19 15:52 03/04/19 11:30 - Physical Exam Breasts: Positive: normal Cardiovascular: Regular rate, Normal S1 Lungs: Positive: Clear to auscultation, Normal air movement Abdomen: Positive: normal appearance, soft, normal bowel sounds. Negative: distention, tenderness, guarding Genitourinary (Female): Positive: normal external genitalia, normal perenium Vagina: Positive: normal moisture Uterus: Positive: normal size, normal contour Deep Tendon Reflex Grade: Normal +2 - Obstetrical FHR: category 1 Cervical Dilatation: 5 Cervical Effacement Percentage: 80 station: 2 Uterine Contraction Pattern: Irregular Uterine Tone Measurement Phase: Contraction Uterine Contraction Intensity: Moderate Results Result Diagrams: 03/04/19 15:27 Abnormal lab results 03/04/19 Range/Units 11:53 RDW 15.7 H (13.2-15.2) % [place] % (Auto) 11.2 H (0.0-7.3) % All other labs normal. Assessment and Plan A/P IUP 38 weeks GBS unknown s/p removal of cerclage advanced dilatation observe
[2019-03-04] MEDS ORDERED: NARCAN 2 MG/2 ML IV PRN (18:42)
--- NOTE | 2019-03-04 18:42 | Anesthesia Consultation ---
Anesthesia Consult and Med Hx Date of service: 03/04/19 - Airway Anesthetic Teeth Evaluation: Good ROM Head & Neck: Adequate Mental/Hyoid Distance: Adequate Mallampati Class: Class II Intubation Access Assessment: Probably Good - Pulmonary Exam CTA: Yes - Cardiac Exam Cardiac Exam: RRR - Pre-Operative Health Status ASA Pre-Surgery Classification: ASA2 Proposed Anesthetic Plan: Epidural - Pulmonary Hx Smoking: No Hx Asthma: No Hx Respiratory Symptoms: No COPD: No Hx Pneumonia: No - Cardiovascular System Hx Hypertension: No Hx Heart Attack/AMI: No Hx Percutaneous Transluminal Coronary Angioplasty (PTCA): No Hx Cardia Arrhythmia: No - Central Nervous System Hx Neuromuscular Disorder: No Hx Seizures: No CVA: No Hx Psychiatric Problems: No - Gastrointestinal Hx Gastroesophageal Reflux Disease: No - Endocrine Hx Renal Disease: No Hx End Stage Renal Disease: No Hx Liver Disease: No Hx Insulin Dependent Diabetes: No Hx Non-Insulin Dependent Diabetes: No Hx Thyroid Disease: No Hx Hypothyroidism: No Hx Hyperthyroidism: No - Hematic Hx Anemia: No Hx Sickle Cell Disease: No - Other Systems Hx Alcohol Use: No Hx Cancer: No Hx Obesity: Yes - Additional Comments Anesthesia Medical History Comments: 38w3d scheduled for cerclage removal. No hx anesthetic complications. Denies use of blood thinners or hx bleeding disorders.
[2019-03-04] MEDS: fentaNYL-BUPIV 2 MCG/ML-0.125% 200 MCG/100 ML BAG EPIDURAL SCH (19:13)
[2019-03-04] MEDS: AMPICILLIN/NS 1 GM/50 ML 1 GM/50 ML BAG IV SCH (22:02)
[2019-03-05] MEDS: fentaNYL-BUPIV 2 MCG/ML-0.125% 200 MCG/100 ML BAG EPIDURAL SCH ×2 (01:39→10:08)
[2019-03-05] MEDS: LACTATED RINGERS 1,000 ML IV SCH (02:47)
[2019-03-05] MEDS: AMPICILLIN/NS 1 GM/50 ML 1 GM/50 ML BAG IV SCH ×2 (02:47→08:31)
[2019-03-05] MEDS ORDERED: MARCAINE 0.25% INFILTRATI ONE (06:18)
--- NOTE | 2019-03-05 11:07 | Progress Note ---
Assessment and Plan IUp at 38 weeks here for induction of labor post removal of cerclage. Will continue with induction process. Will continue to increase pitocin. Anticipate . Subjective - Subjective Date of service: 03/05/19 Principal diagnosis: Induction of labor post cerclage removal Interval history: Pt here for induction of labor post removal of cerclage on yesterday afternoon at 38 weeks. Pt made no cervical change overnight. Pitocin started early this am. AROM for clear fluid at 0900. FHT normal Patient reports: movement normal Objective - Vital Signs Vital Signs: Vital Signs - 12hr 03/04/19 03/04/19 03/04/19 23:15 23:30 23:46 Pulse Rate 69 58 L 65 Blood Pressure 93/51 95/52 96/54 03/05/19 03/05/19 03/05/19 00:00 00:16 00:31 Pulse Rate 80 69 115 H Blood Pressure 98/57 111/52 117/59 03/05/19 03/05/19 03/05/19 00:45 01:01 01:15 Pulse Rate 74 67 71 Blood Pressure 121/60 107/51 96/54 03/05/19 03/05/19 03/05/19 02:15 02:30 02:45 Pulse Rate 59 L 64 63 Blood Pressure 94/54 97/55 117/63 03/05/19 03/05/19 03/05/19 03:00 03:15 03:30 Pulse Rate 65 65 71 Blood Pressure 118/61 120/61 123/59 03/05/19 03/05/19 03/05/19 03:45 04:02 04:15 Pulse Rate 66 70 88 Blood Pressure 126/70 125/63 120/60 03/05/19 03/05/19 03/05/19 04:30 04:46 05:00 Pulse Rate 63 80 57 L Blood Pressure 114/60 128/72 99/52 03/05/19 03/05/19 03/05/19 05:15 05:32 05:45 Pulse Rate 64 81 58 L Blood Pressure 105/55 124/61 102/53 03/05/19 03/05/19 03/05/19 06:01 06:48 06:50 Pulse Rate 67 97 H 85 Blood Pressure 119/67 140/81 127/75 03/05/19 03/05/19 03/05/19 06:53 06:55 06:56 Pulse Rate 89 73 81 Blood Pressure 170/81 141/72 126/60 03/05/19 03/05/19 03/05/19 06:58 07:00 07:03 Pulse Rate 96 H 125 H 69 Blood Pressure 136/55 116/58 98/50 03/05/19 03/05/19 03/05/19 07:04 07:10 07:16 Pulse Rate 54 L 65 61 Blood Pressure 100/53 93/51 106/54 03/05/19 03/05/19 03/05/19 07:20 07:25 07:31 Pulse Rate 61 61 58 L Blood Pressure 100/54 86/44 90/49 03/05/19 03/05/19 03/05/19 07:35 07:40 08:14 Pulse Rate 72 65 67 Blood Pressure 85/46 103/55 90/54 03/05/19 03/05/19 03/05/19 08:42 09:12 09:43 Pulse Rate 64 63 76 Blood Pressure 118/62 119/63 114/87 03/05/19 03/05/19 10:13 10:42 Pulse Rate 66 65 Blood Pressure 117/67 103/53 - Exam Cardiovascular: Regular rate, Normal S1 Lungs: Clear to auscultation, Normal air movement Abdomen: Present: normal appearance, soft, normal bowel sounds Uterus: Present: normal, firm FHR: auscultation normal Cervical Dilatation: 5 Cervical Effacement Percentage: 70 station: -3 Uterine Contraction Pattern: Irregular Uterine Contraction Intensity: Mild Extremities: normal Deep Tendon Reflex Grade: Normal +2 - Labs Labs: Abnormal Labs 03/04/19 11:53 RDW 15.7 H [place] % (Auto) 11.2 H Laboratory Results - last 24 hr 03/04/19 03/04/19 03/04/19 11:53 15:27 15:27 WBC 6.4 5.7 RBC 4.13 3.99 Hgb 12.4 11.8 Hct 36.4 35.4 MCV 88 89 MCH 30 30 MCHC 34 33 RDW 15.7 H 15.0 Plt Count 152 147 Lymph % (Auto) 25.2 [place] % (Auto) 11.2 H Eos % (Auto) 1.6 Baso % (Auto) 0.6 Lymph # 1.6 Dolores # 0.7 Eos # 0.1 Baso # 0.0 Seg Neutrophils % 61.4 Seg Neutrophils # 3.9 HIV 1&2 Antibody Rapid HIV P24 Antigen Blood Type O POSITIVE Antibody Screen Negative 03/05/19 08:30 WBC RBC Hgb Hct MCV MCH MCHC RDW Plt Count Lymph % (Auto) Dolores % (Auto) Eos % (Auto) Baso % (Auto) Lymph # Dolores # Eos # Baso # Seg Neutrophils % Seg Neutrophils # HIV 1&2 Antibody Rapid Non react HIV P24 Antigen Non react Blood Type Antibody Screen
--- NOTE | 2019-03-05 14:36 | Procedure Note ---
OB Delivery Note - Delivery Date of Delivery: 03/05/19 Surgeon: SCOTT ALMANZA Estimated blood loss: 200cc - Vaginal Delivery presentation: vertex Delivery position: OA Intrapartum events: none Delivery augmentation: rupture of membranes, pitocin Delivery monitor: external FHT, external uterine Route of delivery: Delivery placenta: spontaneous Delivery cord: 3 umbilical vessels Episiotomy: none Delivery laceration: none Anesthesia: none Delivery comments: Viable male delivered over intact perineum with no nuchal cord. Weight 8 pounds. Apgars 8,9. Placenta delivered spontaneously and intact with 3vc. No lacerations. Excellent hemostasis. Pt tolerated procedure well. - A at 1 minute: 8 at 5 minutes: 9 Infant Gender: Male (8 pounds)
[2019-03-05] MEDS ORDERED: MILK OF MAGNESIA PO PRN (16:09)
[2019-03-05] MEDS ORDERED: BENADRYL PO PRN (16:09)
[2019-03-05] MEDS ORDERED: DULCOLAX PR PRN (16:09)
[2019-03-05] MEDS ORDERED: TUCKS PAD TP PRN (16:09)
[2019-03-05] MEDS ORDERED: PHENERGAN PO PRN (16:09)
[2019-03-05] MEDS ORDERED: ZOFRAN IV PRN (16:09)
[2019-03-05] MEDS ORDERED: TYLENOL PO PRN (16:09)
[2019-03-05] MEDS ORDERED: LANSINOH TP PRN (16:09)
[2019-03-05] MEDS ORDERED: PHENERGAN PR PRN (16:09)
[2019-03-05] MEDS ORDERED: SODIUM CHLORIDE FLUSH SYRINGE 10 ML IV SCH (16:09)
[2019-03-05] MEDS: NORCO 5/325 PO PRN (22:15)
[2019-03-05] MEDS: IBUPROFEN PO SCH ×2 (22:18→23:30)
[2019-03-06 03:18] LABS: Hematocrit 33.5 % (30.3-42.9); Hemoglobin 11.2 gm/dl (10.1-14.3)
[2019-03-06] MEDS: NORCO 5/325 PO PRN ×2 (05:43→21:30)
[2019-03-06] MEDS: IBUPROFEN PO SCH ×4 (05:43→23:40)
[2019-03-06] MEDS ORDERED: BOOSTRIX IM ONE (06:00)
[2019-03-06] MEDS: PRENATAL VITAMIN PO SCH (10:13)
--- NOTE | 2019-03-06 19:05 | Progress Note ---
Assessment and Plan PPD 1 s/p . Patient is likely to be discharged on tomorrow if baby able to go. Continue routine care and management. Subjective - Subjective Date of service: 03/06/19 Principal diagnosis: Induction of labor post cerclage removal Interval history: Pt here for induction of labor post removal of cerclage on yesterday afternoon at 38 weeks. Pt made no cervical change overnight. Pitocin started early this am. AROM for clear fluid at 0900. FHT normal Patient reports: appetite normal, voiding normally, pain well controlled, ambulating normally : doing well Objective - Vital Signs Latest vital signs: Vital Signs Temp Pulse Resp BP BP Pulse Ox 03/06/19 16:15 98.7 F 64 20 126/54 03/06/19 12:30 98 F 72 20 99/57 03/06/19 08:25 98.3 F 67 20 96/59 03/06/19 00:18 98.2 F 68 20 109/74 97 03/05/19 20:29 98.7 F 74 20 99/59 97 Intake and Output 03/06/19 03/06/19 03/06/19 06:59 14:59 22:59 Intake Total 840 480 Balance 840 480 Intake: Oral 840 480 Other: Total, Intake Amount 320 120 # Voids Void 1 1 - Exam Cardiovascular: Present: Regular rate, Normal S1, Normal S2 Lungs: Present: Clear to auscultation, Normal air movement Abdomen: Present: normal appearance, soft, normal bowel sounds Vulva: both: normal Uterus: Present: normal, firm Extremities: Present: normal Incision: Present: normal, dry, intact
[2019-03-07] MEDS: IBUPROFEN PO SCH ×3 (05:13→17:49)
--- NOTE | 2019-03-07 07:49 | Progress Note ---
Assessment and Plan A: PPD#2 s/p at term s/p cerclage removal P: Routine care. Discharge today with follow up in [address] Washington Subjective - Subjective Date of service: 03/07/19 Principal diagnosis: Induction of labor post cerclage removal Interval history: No overnight events. Patient reports: appetite normal, voiding normally, pain well controlled, ambulating normally : doing well Objective - Vital Signs Latest vital signs: Vital Signs Temp Pulse Resp BP Pulse Ox 03/07/19 00:07 98 F 63 16 132/66 98 03/06/19 16:15 98.7 F 64 20 126/54 03/06/19 12:30 98 F 72 20 99/57 03/06/19 08:25 98.3 F 67 20 96/59 Intake and Output 03/06/19 03/07/19 03/07/19 22:59 06:59 14:59 Intake Total 480 Balance 480 Intake: Oral 480 Other: Total, Intake Amount 120 # Voids Indwelling Catheter 3 Void 1 - Exam Breasts: Present: deferred Cardiovascular: Present: Regular rate Lungs: Present: Clear to auscultation Abdomen: Present: soft Uterus: Present: fundal height below umbilicus Extremities: Present: edema (trace)
--- NOTE | 2019-03-07 07:52 | Discharge Summary ---
Providers - Providers Date of Admission: 03/04/19 15:00 Date of discharge: 03/07/19 Attending physician: ALEXYS WASHINGTON MD Primary care physician: [facility] [facility] Hospitalization Reason for admission: active labor, other (s/p cerclage removal ) Delivery: Procedure details: Please see delivery note. Episiotomy: none Laceration: none Other procedures: none complications: none Discharge diagnosis: IUP at term delivered baby: male Hospital course: Pt was initially admitted for cerclage removal. She subsequently dilated to 5 cm and went into labor productive of a viable male . Her course was uncomplicated and she met discharge criteria on PPD#2. She will follow up in [address] Washington. Condition at discharge: Stable Disposition: - TO HOME OR SELFCARE - Discharge Diagnoses (1) Cervical incompetence Status: Acute (2) Term of male Status: Acute Plan - Discharge Medications Prescriptions: Ibuprofen [Motrin] 800 mg PO Q8HR PRN #30 tablet PRN Reason: Pain, Moderate (4-6) HYDROcodone/APAP 5-325 [[place] 5/325] 1 each PO Q6HR PRN #20 tablet PRN Reason: Pain - Provider Discharge Summary Additional instructions: [] Smoking cessation referral if applicable(refer to patient education folder for contact #) [] Refer to [facility]'s [facility] Booklet Call your doctor immediately for: * Fever > 100.5 * Heavy vaginal bleeding ( >1 pad per hour) * Severe persistent headache * Shortness of breath * Reddened, hot, painful area to leg or breast * Drainage or odor from incision. * Keep incision clean and dry at all times and follow doctor's instructions regarding bathing/showering - Follow up plan Follow up: PRIMARY CARE, [Primary Care Provider] - 7 Days
[2019-03-07] MEDS: PRENATAL VITAMIN PO SCH (12:38)
[2019-03-07 17:22] VITALS: BP 133/64
== END 2019-03-07 18:15 | disposition home or self-care (01) | DRG 981 ==
LOC: OR 10:50 → LD 15:00 → OB 03-05 15:58
PROVIDERS: ADMIT Obstetrics & Gynecology; ATTEND Obstetrics & Gynecology
PROC: 0UCC7ZZ Extirpation of Matter from Cervix, Via Natural or Artificial Opening (ICD-10-PCS; 2019-03-04)
PROC: 10E0XZZ Delivery of Products of Conception, External Approach (ICD-10-PCS; principal; 2019-03-05)
DX: O99.214 Obesity complicating childbirth (principal); O34.33 Maternal care for cervical incompetence, third trimester; E66.9 Obesity, unspecified; Z91.013 Allergy to seafood; Z3A.38 38 weeks gestation of pregnancy; Z37.0 Single live birth; Z79.899 Other long term (current) drug therapy
CPT/HCPCS: 36415; 85014; 85018; 85025; 85027; 86592; 86850; 86900; 86901; 87806; 90471; 90715; G0378; J0290; J2370; J2405; J2590; J3010; J7120

== ENCOUNTER 2020-05-17 05:48 | Observation (INO) | payer OTHER, MEDICAID ==
[2020-05-17] MEDS ORDERED: LACTATED RINGERS 2,000 ML ONE (06:22)
[2020-05-17] MEDS ORDERED: LACTATED RINGERS 1,000 ML IV SCH (07:00)
[2020-05-17 07:16] LABS: Basophils % (Auto) 0.4 % (0.0-1.8); Eosinophils # (Auto) 0.1 K/mm3 (0.0-0.4); Eosinophils % (Auto) 2.1 % (0.0-4.3); Hematocrit 33.9 % (30.3-42.9); Hemoglobin 11.4 gm/dl (10.1-14.3); Lymphocytes % (Auto) 34.6 % (13.4-35.0); Mean Corpuscular HGB Conc 34 % (30-34); Mean Corpuscular Volume 87 fl (79-97); Monocytes # (Auto) 0.6 K/mm3 (0.0-0.8); Monocytes % (Auto) 9.7 % (0.0-7.3); Platelet Count 225 K/mm3 (140-440); Red Blood Count 3.87 M/mm3 (3.65-5.03); Red Cell Distribution Width 14.6 % (13.2-15.2)
--- NOTE | 2020-05-17 08:41 | History and Physical Report ---
History of Present Illness Date of examination: 05/17/20 Chief complaint: Cerclage History of present illness: Pt is a 25 year old DANIEL 11/26/20 at 12w3d who presents for cerclage placement secondary to history of cervical incompetence. She has had one visit at [facility] complicated by cervical incompetence and labor and delivery with loss at 20 wks. 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 History: trichomonas (2012 ) Family/Genetic History: hypertension Social history: no significant social history - Obstetrical History Expected Date of Delivery: 11/26/20 Actual Gestation: 12 Week(s) 3 Day(s) : 5 Para: 3 Hx # Term Pregnancies: 2 Number of Pregnancies: 1 Spontaneous Abortions: 0 Induced : 1 Number of Living Children: 2 Medications and Allergies Allergies Allergy/AdvReac Type Severity Reaction Status Date / Time shellfish derived Allergy Hives Verified 10/25/19 13:14 Home Medications Medication Instructions Recorded Confirmed Last Taken Type No Known Home Medications [No 10/25/19 10/25/19 Unknown History Reported Home Medications] Active Meds: Active Medications Lactated Ringer's (Lactated Ringers) 1,000 mls @ 2,250 mls/hr IV PREOP OMAR Stop: 05/18/20 07:27 Last Admin: 05/17/20 06:42 Dose: 2,250 mls/hr Documented by: Review of Systems All systems: negative - Vital Signs Vital signs: Vital Signs Temp 98.6 F 05/17/20 06:20 Temp Pulse Resp BP Pulse Ox 98.6 F 68 118/56 05/17/20 06:20 05/17/20 06:25 05/17/20 06:25 - Physical Exam Breasts: Positive: deferred Abdomen: Positive: soft (obese, gravid ) Uterus: Positive: enlarged (gravid ) Extremities: Positive: normal - Obstetrical FHR: auscultation normal Results Result Diagrams: 05/17/20 06:30 Abnormal lab results 05/17/20 Range/Units 06:30 [place] % (Auto) 9.7 H (0.0-7.3) % All other labs normal. Assessment and Plan A: IUP at 12w3d Cervical Incompetence Obesity P: Plan to proceed with Badillo Cerclage and other indicated procedures
[2020-05-17] MEDS ORDERED: ceFAZolin/STERILE WATER 2 GM/20 ML SYRINGE IV ONE (08:48)
[2020-05-17] MEDS ORDERED: ceFAZolin 1 GM VIAL ONE (08:52)
[2020-05-17] MEDS ORDERED: ONDANSETRON 4 MG/2 ML INJ ONE (08:52)
--- NOTE | 2020-05-17 09:00 | Anesthesia Consultation ---
Anesthesia Consult and Med Hx Date of service: 05/17/20 - Airway Anesthetic Teeth Evaluation: Good ROM Head & Neck: Adequate Mental/Hyoid Distance: Adequate Mallampati Class: Class II Intubation Access Assessment: Probably Good - Pulmonary Exam CTA: Yes - Cardiac Exam Cardiac Exam: RRR - Pre-Operative Health Status ASA Pre-Surgery Classification: ASA2 Proposed Anesthetic Plan: Spinal - Pulmonary Hx Asthma: No Hx Respiratory Symptoms: No - Cardiovascular System Hx Hypertension: No Hx Cardia Arrhythmia: No - Central Nervous System Hx Neuromuscular Disorder: No Hx Seizures: No Hx Psychiatric Problems: No - Gastrointestinal Hx Gastroesophageal Reflux Disease: No - Endocrine Hx Insulin Dependent Diabetes: No Hx Non-Insulin Dependent Diabetes: No Hx Thyroid Disease: No - Other Systems Hx Alcohol Use: No Hx Cancer: No
--- NOTE | 2020-05-17 09:01 | Anesthesia Day of Surgery ---
Anesthesia Day of Surgery - Day of Surgery Patient Examined: Yes Patient H&P Reviewed: Yes Patient is NPO: Yes
--- NOTE | 2020-05-17 09:15 | Ultrasound Report ---
ULTRASOUND OBSTETRIC LIMITED INDICATION / CLINICAL INFORMATION: Viability. TECHNIQUE: Transabdominal ultrasound imaging. COMPARISON: 04/02/2020 FINDINGS: HEART RATE (beats per minute): 156 AMNIOTIC FLUID INDEX (cm) = TAMARA was not measured but qualitative amniotic fluid appears within wilder l limits. PRESENTATION: Breech. ADDITIONAL FINDINGS: None. IMPRESSION: Viable intrauterine . Signer Name: Samuel Montoya Jr, MD Signed: 05/17/2020 9:11 AM Workstation Name: [id number]
--- NOTE | 2020-05-17 09:52 | Post Anesthesia Evaluation ---
- Post Anesthesia Evaluation Patient Participated: Yes Airway Patent: Yes Stable Respiratory Function: Yes Nausea/Vomiting: No Temp > 96.8F: Yes Pain Manageable: Yes Adequeate Hydration: Yes Anesthesia Complications: No Block Receding Appropriately: Yes
--- NOTE | 2020-05-17 09:55 | Operative Report ---
Operative Report Operative Report: Date of procedure: May 17, 2020 Preoperative diagnosis: 1) IUP at 12wks 2) Cervical Incompetence Postoperative diagnosis: Same Procedure: 1) Excision of Retain Cerclage Fragment 2) Aby Cerclage Surgeon: Adrianna Mitchell M.D. Findings: Closed cervix on speculum exam Anesthesia: Spinal EBL: Minimal Urine output: 50 mL prior to procedure Specimens:Cerclage fragment to pathology Drains: None Complications: None. Counts correct 2 Disposition: Stable to recovery Indication for procedure: The patient is a 25 year old at 12w3d s with a history of cervical incompetence and delivery who presents for cerclage placement. Operation in detail: After the risks, benefits, alternatives and complications of the procedure were splayed to the patient she gave informed consent for the procedure. She was subsequently taken to the operating room with her IV noted to be running. A timeout was performed. Spinal anesthesia was administered without difficulty. heart tones are noted prior to the procedure. She was then placed in the dorsal lithotomy position and prepped and draped in normal sterile fashion. A timeout was performed. The bladder was drained of urine prior to the procedure. A bivalve speculum was placed into the patient's vagina for adequate visualization of the cervix. A ring forcep was placed on the anterior lip of the cervix. A fragment of retained cerclage was noted at the 10 o clock position of the cervix. It was grasped with a Diamante clamp and excised. Next, a #1 Prolene suture was inserted through the cervical mucosa starting at the 12 o'clock position. A circumferential stitch was placed in a purse-string fashion ending at the 12 o'clock position, with the knots at the 12 o'clock position. There is no evidence of any active bleeding or leakage of fluid. All instruments were then removed from the vagina. The patient was then placed in the dorsal supine position and taken to the recovery room in stable condition. All instrument, lap and needle counts were correct 2.
--- NOTE | 2020-05-17 09:55 | Short Stay Summary ---
Short Stay Documentation Date of service: 05/17/20 - History H&P: dictated Social history: no significant social history - Allergies and Medications Current Medications: Allergies shellfish derived Allergy (Verified 10/25/19 13:14) Hives Home Medications Medication Instructions Recorded Confirmed Last Taken Type No Known Home Medications [No 10/25/19 10/25/19 Unknown History Reported Home Medications] Active Medications Lactated Ringer's (Lactated Ringers) 1,000 mls @ 2,250 mls/hr IV PREOP OMAR Stop: 05/18/20 07:27 Last Admin: 05/17/20 06:42 Dose: 2,250 mls/hr Documented by: - Physical exam Breasts: deferred - Brief post op/procedure progress note Date of procedure: 05/17/20 Pre-op diagnosis: Cervical Incompetence, IUP at 12 wks Post-op diagnosis: same Procedure: Excision of Retained Cerclage Fragment, Badillo Cerclage Anesthesia: spinal Findings: Cervix closed prior to procedure Surgeon: TONY FLYNN Estimated blood loss: minimal Pathology: list (cerclcagege fragment) Specimen disposition: to lab - Hospital course Hospital course: Pt underwent Badillo Cerclage which she tolerated well. She was observed postop until she met discharge criteria. She will follow up in 2 wks with [facility] [employer] [facility] and at scheduled [facility] appt next week. - Disposition Condition at discharge: Stable Disposition: DC-01 TO HOME OR SELFCARE - Discharge Diagnoses (1) Obesity Status: Acute Qualifiers: Obesity type: unspecified obesity type Obesity classification: adult class 1 (BMI 30 - 34.9) Serious obesity comorbidity presence: unspecified whether serious comorbidity present Body mass index: BMI 32.0-32.9 Qualified Code(s): E66.9 - Obesity, unspecified; Z68.32 - Body mass index (BMI) 32.0-32.9, adult (2) Status: Acute Qualifiers: Weeks of gestation: 12 weeks Qualified Code(s): Z3A.12 - 12 weeks gestation of (3) Cervical incompetence Status: Acute Short Stay Discharge Plan Activity: other (Nothing in vagina for remainder of ) Weight Bearing Status: Full Weight Bearing Diet: regular Additional Instructions: Monitor for vaginal bleeding or severe abdominal pain Follow up with: MUNIR YU MD [Primary Care Provider] - 7 Days Forms: [facility] Discharge Summary Prescriptions: HYDROcodone/APAP 5-325 [[place] 5/325] 1 each PO Q6HR PRN #20 tablet PRN Reason: Pain
[2020-05-17] MEDS ORDERED: HYDROcodone/ACETAMINOPHEN 5-325 MG TAB PO PRN (10:00)
[2020-05-17 12:02] VITALS: BP 95/51
--- NOTE | 2020-05-17 12:46 | Ultrasound Report ---
ULTRASOUND OBSTETRIC LIMITED INDICATION / CLINICAL INFORMATION: Viability after cerclage placement. TECHNIQUE: Transabdominal ultrasound imaging. COMPARISON: Earlier today at 0750 hours FINDINGS: HEART RATE (beats per minute): 145 AMNIOTIC FLUID INDEX (cm) = TAMARA was not measured but appears qualitatively normal PRESENTATION: Transverse. Head to maternal right. ADDITIONAL FINDINGS: None. IMPRESSION: Viable single intrauterine Signer Name: Samuel Montoya Jr, MD Signed: 05/17/2020 12:42 PM Workstation Name: [id number]
== END 2020-05-17 12:30 | disposition home or self-care (01) ==
LOC: TRG 05:48 → APU 06:07 → EDSTATUS 08:30 → TRG 09:40 → APU 09:41
PROVIDERS: ADMIT Obstetrics & Gynecology; ATTEND Obstetrics & Gynecology
DX: O34.31 Maternal care for cervical incompetence, first trimester (principal); O99.211 Obesity complicating pregnancy, first trimester; E66.9 Obesity, unspecified; Z87.59 Personal history of other complications of pregnancy, childbirth and the puerperium; Z91.013 Allergy to seafood; Z3A.12 12 weeks gestation of pregnancy; Z68.32 Body mass index [BMI] 32.0-32.9, adult
CPT/HCPCS: 36415; 59320; 76815; 85025; 86850; 86900; 86901; 88300; 96374; G0378; J0690; J2405; J7120; 88302

== ENCOUNTER 2020-11-09 12:22 | Outpatient (CLI) | payer OTHER, MEDICAID ==
[2020-11-09 13:01] VITALS: BP 117/61
--- NOTE | 2020-11-09 14:26 | Ultrasound Report ---
ULTRASOUND OBSTETRIC LIMITED ULTRASOUND BIOPHYSICAL PROFILE INDICATION / CLINICAL INFORMATION: well being. COMPARISON: None available. FINDINGS: BREATHING MOVEMENT = 2 GROSS BODY MOVEMENT = 2 TONE = 2 QUALITATIVE AMNIOTIC FLUID VOLUME = 2 TOTAL BIOPHYSICAL SCORE = 8/8 HEART RATE (beats per minute): 1:15 AMNIOTIC FLUID INDEX (cm) = 7.5 (normal = 7-24 cm) PRESENTATION: Cephalic. ADDITIONAL FINDINGS: None. IMPRESSION: 1. Biophysical Score = 8/8 Signer Name: Arnoldo Rock MD Signed: 11/09/2020 2:22 PM Workstation Name: [id number]
== END 2020-11-09 15:24 | disposition home or self-care (01) ==
LOC: TRG 12:22 → APU 12:23 → TRG 15:24
PROVIDERS: ATTEND Obstetrics & Gynecology
DX: Z34.93 Encounter for supervision of normal pregnancy, unspecified, third trimester (principal); Z3A.38 38 weeks gestation of pregnancy
CPT/HCPCS: 59025; 76815; 76819

== ENCOUNTER 2020-11-22 16:47 | Inpatient (IN) | payer OTHER, MEDICAID ==
[2020-11-22] MEDS ORDERED: LACTATED RINGERS 1,000 ML ONE (17:23)
[2020-11-22] MEDS ORDERED: MINERAL OIL 30 ML ORAL LIQD PO PRN (19:12)
[2020-11-22] MEDS ORDERED: ePHEDrine SULFATE 50 MG/1 ML INJ IV PRN (19:12)
[2020-11-22] MEDS ORDERED: LIDOCAINE (2%) 20 MG/1 ML VIAL 20 ML MDV INFILTRATI ONE (19:12)
[2020-11-22] MEDS ORDERED: AMPICILLIN/NS 2 GM/100 ML 2 GM/100 ML BAG IV ONE (19:12)
[2020-11-22] MEDS ORDERED: TERBUTALINE 1 MG/1 ML INJ SUB-Q PRN (19:12)
[2020-11-22] MEDS ORDERED: BUTORPHANOL 2 MG/1 ML INJ IV PRN (19:12)
[2020-11-22] MEDS ORDERED: OXYTOCIN DRIP 30 UNITS/500 ML BAG IV SCH ×2 (20:00)
[2020-11-22 20:12] LABS: Hematocrit 32.3 % (30.3-42.9); Hemoglobin 10.9 gm/dl (10.1-14.3); Mean Corpuscular HGB Conc 34 % (30-34); Mean Corpuscular Volume 88 fl (79-97); Platelet Count 182 K/mm3 (140-440); Red Blood Count 3.66 M/mm3 (3.65-5.03); Red Cell Distribution Width 14.8 % (13.2-15.2)
[2020-11-22] MEDS: LACTATED RINGERS 1,000 ML IV SCH ×2 (20:31→23:02)
[2020-11-22] MEDS ORDERED: NALOXONE 2 MG/2 ML INJ IV PRN (22:36)
--- NOTE | 2020-11-22 22:37 | Anesthesia Consultation ---
Anesthesia Consult and Med Hx Date of service: 11/22/20 - Airway Anesthetic Teeth Evaluation: Good ROM Head & Neck: Adequate Mental/Hyoid Distance: Adequate Mallampati Class: Class II Intubation Access Assessment: Probably Good - Pulmonary Exam CTA: Yes - Cardiac Exam Cardiac Exam: RRR - Pre-Operative Health Status ASA Pre-Surgery Classification: ASA2 Proposed Anesthetic Plan: Epidural - Pulmonary Hx Asthma: No Hx Respiratory Symptoms: No - Cardiovascular System Hx Hypertension: No Hx Cardia Arrhythmia: No - Central Nervous System Hx Neuromuscular Disorder: No Hx Seizures: No Hx Psychiatric Problems: No - Gastrointestinal Hx Gastroesophageal Reflux Disease: No - Endocrine Hx Renal Disease: No Hx Insulin Dependent Diabetes: No Hx Non-Insulin Dependent Diabetes: No Hx Thyroid Disease: No Hx Hypothyroidism: No Hx Hyperthyroidism: No - Hematic Hx Anemia: No Hx Sickle Cell Disease: No - Other Systems Hx Alcohol Use: No Hx Cancer: No
--- NOTE | 2020-11-22 22:57 | Progress Note ---
Labor Epidural - Labor Epidural Start Time: 22:44 Stop Time: 22:49 Performed by:: RUBIA HERNANDEZ Procedure: Patient is requesting epidural for labor pain. H&P, and labs reviewed. Procedure explained, questions answered, consent obtained. Patient in sitting position with blood pressure cuff and pulse ox on and working. Timeout performed immediately before start of procedure. Sterile chlorahexadine 0.5% prep/drape. 5 mL 1% lidocaine skin wheal at L[3]-L[4]. 18-gauge Tuohy epidural needle advanced to [id number] with saline at [7] cm. Epidural dexmedetomidine [30] mcg administered. Epidural catheter advanced to [12] cm, negative aspiration for blood and csf, negative test dose 3 ml 1.5% lidocaine with epinephrine. Sterile steri-strips and tegaderm applied, followed by tape reinforcement. Patient tolerated procedure well.
[2020-11-22] MEDS ORDERED: fentaNYL-BUPIV 2 MCG/ML-0.125% 200 MCG/100 ML BAG EPIDURAL SCH (23:00)
[2020-11-22] MEDS: AMPICILLIN/NS 1 GM/50 ML 1 GM/50 ML BAG IV SCH (23:26)
[2020-11-22] MEDS: ePHEDrine SULFATE 50 MG/1 ML INJ IV PRN (23:37)
[2020-11-23] MEDS: ePHEDrine SULFATE 50 MG/1 ML INJ IV PRN (02:21)
[2020-11-23] MEDS: AMPICILLIN/NS 1 GM/50 ML 1 GM/50 ML BAG IV SCH (04:46)
--- NOTE | 2020-11-23 06:58 | History and Physical Report ---
History of Present Illness Date of examination: 11/23/20 Date of admission: 11/22/20 16:47 Chief complaint: Biophysical profile of 4 out of 8 History of present illness: 25-year-old at 40+1 weeks who presents to labor and delivery after having a biophysical profile with a score of 4 out of 8. The patient has advanced cervical dilatation of 5 cm. She denies leakage of fluid. The patient has a history of a shortened cervical length and received a cerclage during this . She is GBS positive. Past History Past Medical History: no pertinent history Past Surgical History: other (Cerclage) Social history: - Obstetrical History Expected Date of Delivery: 11/21/20 Actual Gestation: 40 Week(s) 2 Day(s) : 5 Para: 2 Hx # Term Pregnancies: 2 Number of Pregnancies: 1 Spontaneous Abortions: 0 Induced : 1 Number of Living Children: 2 Medications and Allergies Allergies Allergy/AdvReac Type Severity Reaction Status Date / Time shellfish derived Allergy Hives Verified 10/25/19 13:14 Home Medications Medication Instructions Recorded Confirmed Last Taken Type HYDROcodone/APAP 5-325 [[place] 1 each PO Q6HR PRN #20 tablet 05/17/20 11/23/20 Unknown Rx 5/325] Active Meds: Active Medications Butorphanol Tartrate (Butorphanol 2 Mg/1 Ml Inj) 2 mg IV Q2H PRN PRN Reason: Pain , Severe (7-10) Ephedrine Sulfate (Ephedrine Sulfate 50 Mg/1 Ml Inj) 10 mg IV Q2M PRN PRN Reason: Hypotension Last Admin: 11/23/20 02:21 Dose: 10 mg Documented by: Oxytocin/Sodium Chloride (Pitocin/Ns 30 Unit/500ml) 30 units in 500 mls @ 4 mls/hr IV TITR OMAR; Protocol Last Titration: 11/23/20 02:24 Dose: 16 mls/hr, 16 mls/hr Documented by: Lactated Ringer's (Lactated Ringers) 1,000 mls @ 125 mls/hr IV DIRECT OMAR Last Admin: 11/22/20 23:02 Dose: 125 mls/hr Documented by: Oxytocin/Sodium Chloride (Pitocin/Ns 30 Unit/500ml) 30 units in 500 mls @ 2 mls/hr IV TITR OMAR; Protocol Ampicillin Sodium (Ampicillin/Ns 1 Gm/50 Ml) 1 gm in 50 mls @ 100 mls/hr IV Q4H [facility]; Protocol Last Admin: 11/23/20 04:46 Dose: 100 mls/hr Documented by: Fentanyl/Bupivacaine/Sodium Chlor (Fentanyl-Bupiv 2 Mcg/Ml-0.125%) 200 mcg in 100 mls @ 12 mls/hr EPIDURAL TITR [facility]; Protocol Last Admin: 11/22/20 23:41 Dose: 12 mls/hr Documented by: Mineral Oil (Mineral Oil 30 Ml Oral Liqd) 30 ml PO QHS PRN PRN Reason: Constipation Naloxone HCl (Naloxone 2 Mg/2 Ml Inj) 0.2 mg IV Q5M PRN PRN Reason: Respiratory sedation Terbutaline Sulfate (Terbutaline 1 Mg/1 Ml Inj) 0.25 mg SUB-Q ONCE PRN PRN Reason: Hyperstimulation/Hypertonicity Review of Systems All systems: negative Genitourinary: contractions - Vital Signs Vital signs: Vital Signs Pulse Pulse Ox 82 99 11/22/20 17:16 11/22/20 17:16 Temp Pulse Resp BP Pulse Ox 97.9 F 60 18 102/57 100 11/22/20 23:30 11/23/20 06:50 11/22/20 19:40 11/23/20 06:47 11/23/20 06:50 - Physical Exam Breasts: Positive: deferred Cardiovascular: Regular rate Lungs: Positive: Clear to auscultation Abdomen: Positive: normal appearance - Obstetrical Cervical Dilatation: 5 Results Result Diagrams: 11/22/20 Unknown All other labs normal. Assessment and Plan - Patient Problems (1) Active labor at term Current Visit: Yes Status: Acute Plan to address problem: Admit to labor and delivery for augmentation of labor
[2020-11-23] MEDS ORDERED: diphenhydrAMINE 25 MG CAP PO PRN (08:00)
[2020-11-23] MEDS ORDERED: PROMETHAZINE 25 MG RECT SUPP PR PRN (08:00)
[2020-11-23] MEDS ORDERED: ACETAMINOPHEN 325 MG TAB PO PRN (08:00)
[2020-11-23] MEDS ORDERED: PROMETHAZINE 25 MG TAB PO PRN (08:00)
[2020-11-23] MEDS ORDERED: HYDROcodone/ACETAMINOPHEN 5-325 MG TAB PO PRN (08:00)
[2020-11-23] MEDS ORDERED: ONDANSETRON 4 MG/2 ML INJ IV PRN (08:00)
[2020-11-23] MEDS ORDERED: LANOLIN/ZINC/DIMETHICONE (LANSINOH) 7 GM TP PRN (08:00)
[2020-11-23] MEDS ORDERED: WITCH HAZEL/ GLYCERIN PAD TP PRN (08:00)
[2020-11-23] MEDS: IBUPROFEN 600 MG TAB PO SCH ×3 (10:05→23:22)
--- NOTE | 2020-11-23 11:24 | Procedure Note ---
OB Delivery Note - Delivery Date of Delivery: 11/23/20 Surgeon: MUNIR YU Estimated blood loss: 100cc - Vaginal Delivery presentation: vertex Delivery position: OA Delivery augmentation: pitocin Delivery monitor: external FHT, external uterine Route of delivery: Delivery placenta: spontaneous Delivery cord: 3 umbilical vessels Episiotomy: none Delivery laceration: none Anesthesia: epidural - A at 1 minute: 8 at 5 minutes: 9 Gender: Male (weight 7lbs 7oz)
[2020-11-23 19:29] LABS: Hematocrit 31.1 % (30.3-42.9); Hemoglobin 10.5 gm/dl (10.1-14.3)
[2020-11-23] MEDS ORDERED: MAGNESIUM HYDROXIDE (MOM) ORAL LIQD UDC PO PRN (22:00)
[2020-11-24] MEDS: IBUPROFEN 600 MG TAB PO SCH ×3 (04:52→15:26)
[2020-11-24] MEDS ORDERED: TETANUS,DIPH,PERTUSS(ACELL) VACCINE 0.5 ML SYRINGE IM ONE (06:00)
--- NOTE | 2020-11-24 11:44 | Progress Note ---
Assessment and Plan PPD 1 s/p . Doing well. Plan for discharge on today. Pt was adequately treated for GBS. Subjective - Subjective Date of service: 11/24/20 Interval history: PPD 1 s/p . Doing well. Plan for discharge on today. Patient reports: appetite normal, voiding normally, pain well controlled, flatus, ambulating normally : doing well Objective - Vital Signs Latest vital signs: Vital Signs Temp Pulse Resp BP BP Pulse Ox 11/24/20 08:48 97.5 F L 72 18 98/65 99 11/24/20 04:52 20 11/24/20 00:19 98.4 F 67 20 98/40 99 11/23/20 23:22 20 11/23/20 16:50 98.4 F 56 L 18 104/59 99 Intake and Output 11/23/20 11/24/20 11/24/20 22:59 06:59 14:59 Intake Total 360 240 Output Total 900 Balance -540 240 Intake: Oral 240 Intake, Free Water 360 Output: Urine 900 Void 900 Other: Total, Intake Amount 240 Total, Output Amount 450 # Voids Void 1 1 - Exam Breasts: Present: deferred Cardiovascular: Present: Regular rate, Normal S1, Normal S2 Lungs: Present: Clear to auscultation, Normal air movement Abdomen: Present: normal appearance, soft Vulva: both: normal Uterus: Present: normal, firm Extremities: Present: normal
--- NOTE | 2020-11-24 11:50 | Discharge Summary ---
Providers - Providers Date of Admission: 11/22/20 16:47 Date of discharge: 11/24/20 Attending physician: MUNIR YU Primary care physician: MUNIR YU Hospitalization Reason for admission: active labor Delivery: Episiotomy: none Other procedures: none complications: none Discharge diagnosis: IUP at term delivered baby: male Hospital course: unremarkable Condition at discharge: Good Disposition: DC-01 TO HOME OR SELFCARE Plan - Discharge Medications Prescriptions: Ibuprofen [Motrin 600 MG tab] 600 mg PO Q6H #40 tablet HYDROcodone/APAP 5-325 [[place] 5-325 mg TAB] 2 each PO Q6H PRN #15 tablet PRN Reason: Pain, Moderate (4-6) - Provider Discharge Summary Activity: routine, no sex for 6 weeks, no heavy lifting 4 weeks, no strenuous exercise Diet: routine Instructions: routine Additional instructions: [] Smoking cessation referral if applicable(refer to patient education folder for contact #) [] Refer to [facility] Booklet Call your doctor immediately for: * Fever > 100.5 * Heavy vaginal bleeding ( >1 pad per hour) * Severe persistent headache * Shortness of breath * Reddened, hot, painful area to leg or breast * Drainage or odor from incision. * Keep incision clean and dry at all times and follow doctor's instructions regarding bathing/showering - Follow up plan Follow up: MUNIR YU MD [Primary Care Provider] - 6 Weeks
[2020-11-24 15:28] VITALS: BP 109/55
== END 2020-11-24 14:55 | disposition home or self-care (01) | DRG 807 ==
LOC: LD 16:47 → OB 11-23 10:34
PROVIDERS: ADMIT Obstetrics & Gynecology; ATTEND Obstetrics & Gynecology
PROC: 3E0R3BZ Introduction of Anesthetic Agent into Spinal Canal, Percutaneous Approach (ICD-10-PCS; 2020-11-22)
PROC: 00HU33Z Insertion of Infusion Device into Spinal Canal, Percutaneous Approach (ICD-10-PCS; 2020-11-22)
PROC: 10E0XZZ Delivery of Products of Conception, External Approach (ICD-10-PCS; principal; 2020-11-23)
DX: O80 Encounter for full-term uncomplicated delivery (principal); Z37.0 Single live birth; Z3A.40 40 weeks gestation of pregnancy; Z20.822 Contact with and (suspected) exposure to COVID-19
CPT/HCPCS: 36415; 85014; 85018; 85027; 86592; 86850; 86900; 86901; 90471; 90715; G0378; J0290; J2590; J7120; U0003